=== PATIENT | male | born 1980 | race Caucasian/White ===

== ENCOUNTER 2023-01-07 11:41 | Emergency (ER) | payer OTHER ==
[2023-01-07] MEDS ORDERED: SODIUM CHLORIDE 0.9% 1,000 ML IV ONE ×2 (11:53→13:31)
[2023-01-07] MEDS ORDERED: lisinopriL 10 MG TAB PO STA (12:05)
[2023-01-07 12:06] VITALS: TEMP 98.7
[2023-01-07 12:27] LABS: Basophils % (A) 1 %; Eosinophils # (A) 0.1 k/uL (0-0.7); Eosinophils % (A) 2 %; HCT 46.7 % (39.0-53.0); HGB 15.8 gm/dL (13.0-17.5); Lymphocytes # (A) 1.5 k/uL (1.0-4.8); Lymphocytes % (A) 30 %; MCH 33.1 pg (25.0-35.0); MCHC 33.9 g/dL (31.0-37.0); MCV 97.8 fL (80.0-100.0); Monocytes # (A) 0.3 k/uL (0-1.0); Monocytes % (A) 6 %; Neutrophils # (A) 3.1 k/uL (1.3-7.7); Neutrophils % (A) 60 %; Platelet Count 182 k/uL (150-450); RBC 4.78 m/uL (4.30-5.90); RDW 12.5 % (11.5-15.5); WBC 5.2 k/uL (3.8-10.6)
[2023-01-07 12:37] LABS: ALT 36 U/L (4-49); AST 54 U/L (17-59); African American GFR (CKD) >90 (>60 ml/min/1.73 sqM); Albumin 5.1 g/dL (3.5-5.0); Alkaline Phosphatase 55 U/L (38-126); Anion Gap 14 mmol/L; Blood Urea Nitrogen 13 mg/dL (9-20); Calcium 9.6 mg/dL (8.4-10.2); Carbon Dioxide 24 mmol/L (22-30); Chloride 100 mmol/L (98-107); Glucose 102 mg/dL (74-99); Non-African American GFR(CKD) >90 (>60 ml/min/1.73 sqM); Potassium 4.4 mmol/L (3.5-5.1); Sodium 138 mmol/L (137-145); Total Bilirubin 0.7 mg/dL (0.2-1.3)
[2023-01-07 12:45] LABS: Partial Thromboplastin Time 24.4 sec (22.0-30.0)
--- NOTE | 2023-01-07 13:00 | ED ---
General Adult HPI - General Chief complaint: Recheck/Abnormal Lab/Rx Stated complaint: SOB Time Seen by Provider: 01/07/23 11:47 Source: patient, RN notes reviewed Mode of arrival: ambulatory Limitations: no limitations - History of Present Illness Initial comments: 42-year-old female with a past medical history significant for TBI and uncontrolled hypertension presents emergency department with a chief complaint of dizziness. Patient reports that he has been out of his hypertensive medications for approximately 10 months. He used to take lisinopril however was only given 2 weeks worth. He reports increased of symptoms of dizziness, li ghtheadedness and feeling like he can't find his words appropriately. He denies injury or trauma. He denies any chills, cough, chest pain, palpitations,, nausea, vomiting, abdominal pain. He does report at times he feels like it is hard to catch his breath however this has been ongoing and intermittent for 3 weeks. Denies recent alcohol use, is a current tobacco smoker. - Related Data Previous Rx's Medication Instructions Recorded amLODIPine [Norvasc] 5 mg PO DAILY #30 tab 01/07/23 lisinopriL 40 mg PO DAILY #30 tab 01/07/23 Allergies Allergy/AdvReac Type Severity Reaction Status Date / Time No Known Allergies Allergy Verified 01/07/23 14:15 Review of Systems ROS Statement: Those systems with pertinent positive or pertinent negative responses have been documented in the HPI. ROS Other: All systems not noted in ROS Statement are negative. Past Medical History Past Medical History: Hypertension Additional Past Medical History / Comment(s): Chronic back pain, head injury 2004 History of Any Multi-Drug Resistant Organisms: None Reported Additional Past Surgical History / Comment(s): Carpal tunnel, jaw surgery Past Anesthesia/Blood Transfusion Reactions: No Reported Reaction Past Psychological History: Anxiety Smoking Status: Current every day smoker Past Alcohol Use History: Occasional Past Drug Use History: Marijuana - Past Family History Father Family Medical History: Coronary Artery Disease (CAD), Hyperlipidemia General Exam - General Exam Comments Initial Comments: General: Alert, in no acute distress Head: atraumatic normocephalic. Eyes PERRL, EOMI intact, mucous membranes moist Respiratory: Lungs clear to auscultation bilaterally Cardiovascular: Heart rate regular rate and rhythm Abdominal: Soft without guarding or rebound Extremities: Normal inspection with full range of motion and normal capillary refill Neuroogic: alert and oriented 3, CN II-XII intact, able to ambulate with steady gait Skin: warm dry and intact with normal color Limitations: no limitations Course Vital Signs 01/07/23 01/07/23 01/07/23 11:43 12:24 13:00 Temperature 98.7 F Pulse Rate 79 82 69 Respiratory 18 18 18 Rate Blood Pressure 189/115 164/102 182/115 O2 Sat by Pulse 97 98 98 Oximetry 01/07/23 01/07/23 14:00 15:13 Temperature Pulse Rate 78 Respiratory 16 Rate Blood Pressure 154/94 154/94 O2 Sat by Pulse 98 Oximetry - Reevaluation(s) Reevaluation #1: 01/07/23 14:07 Patient reevaluated. Patient in no acute distress. Denies any active symptoms. Aware awaiting lower blood pressure in order to discharge Reevaluation #2: 01/07/23 14:59 Patient reevaluated. Blood pressure is 150s over 90s. Patient agreeable with the plan for discharge home. EKG Findings - EKG Comments: EKG Findings:: I interpreted the following: EKG performed 12:28 rate is 63 bpm normal sinus rhythm. VT interval 165, QRS duration 83, QT/QTc 404/411 Medical Decision Making - Medical Decision Making Was pt. sent in by a medical professional or institution ([facility] [place], SPEEDOMETER INSPECTOR, urgent care, hospital, or fpc...) When possible be specific @ -[No] Did you speak to anyone other than the patient for history (EMS, parent, family, police, friend...)? What history was obtained from this source @ -[No] Did you review nursing and triage notes (agree or disagree)? Why? @ -[I reviewed and agree with nursing and triage notes] Were old charts reviewed (outside hosp., previous admission, EMS record, old EKG, old radiological studies, urgent care reports/EKG's, fpc records)? Report findings @ -[No old charts were reviewed] Differential Diagnosis (chest pain, altered mental status, abdominal pain women, abdominal pain men, vaginal bleeding, weakness, fever, dyspnea, syncope, he adache, dizziness, GI bleed, back pain, seizure, CVA, palpatations, mental health, musculoskeletal)? @ -[not applicable] EKG interpreted by me (3pts min.). @ -[As above] X-rays interpreted by me (1pt min.). @ Chest x-ray remarkable CT interpreted by me (1pt min.). @ -[None done] U/S interpreted by me (1pt. min.). @ -[None done] What testing was considered but not performed or refused? (CT, X-rays, U/S, lab s)? Why? @ -[None] What meds were considered but not given or refused? Why? @ -[None] Did you discuss the management of the patient with other professionals (professionals i.e. , PA, SPEEDOMETER INSPECTOR, lab, RT, psych nurse, health care social worker, adjunct faculty instructor, teacher, mounted police officer, immigration case worker)? Give summary @ -[No] Was smoking cessation discussed for >3mins.? @ -[No] Was critical care preformed (if so, how long)? @ -[No] Were there social determinants of health that impacted care today? How? (Homelessness, low income, unemployed, alcoholism, drug addiction, transportation, low edu. Level, literacy, decrease access to med. care, [facility], rehab)? @ -[No] Was there de-escalation of care discussed even if they declined (Discuss DNR or withdrawal of care, Hospice)? DNR status @ -[No] What co-morbidities impacted this encounter? (DM, HTN, Smoking, COPD, CAD, Cancer, CVA, ARF, Chemo, Hep., AIDS, mental health diagnosis, sleep apnea, morbid obesity)? @ -[None] Was patient admitted / discharged? Hospital course, mention meds given and route, prescriptions, significant lab abnormalities, going to OR and other per tinent info. @ Discharged. This is a 42-year-old male with no significant past medical history who presents to the emergency room with a chief complaint of high blood pressure. Patient had a thorough history and physical exam performed. Physical exam essentially unremarkable heart rat regular rate and rhythm, lungs clear to auscultation abdomen soft nontender. No focal neuro deficits noted on exam. Patient's blood pressure upon arrival 190s over 110's The progression of the ER patient was given lisinopril and Norvasc. Symptomatic improvement. Blood pressure upon discharge is 150s over 80s. Patient provided lisinopril and Norvasc prescriptions. Recommended close follow-up with PCP in 2-3 days. Educated patient on importance of blood pressure management and increased risk for stroke. Patient verbalized understanding all questions were addressed. Patient discharged in stable condition. Case discussed with Dr. Ventura who agrees with plan of care Undiagnosed new problem with uncertain prognosis? @ -[No] Drug Therapy requiring intensive monitoring for toxicity (Heparin, Nitro, Insulin, Cardizem)? @ -[No] Were any procedures done? @ -[No] Diagnosis/symptom? @ -HTN Acute, or Chronic, or Acute on Chronic? @ -Acute Uncomplicated (without systemic symptoms) or Complicated (systemic symptoms)? @ -Uncomplicated Side effects of treatment? @ -[No] Exacerbation, Progression, or Severe Exacerbation? @ -[No] Poses a threat to life or bodily function? How? (Chest pain, [place], [place], pneumonia, PE, COPD, DKA, ARF, appy, cholecystitis, CVA, Diverticulitis, Homicidal, Suicidal, threat to staff... and all critical care pts) @ -Low likelihood - Lab Data Result diagrams: 01/07/23 12:12 01/07/23 12:12 Lab Results 01/07/23 01/07/23 01/07/23 Range/Units 12:12 12:12 12:12 WBC 5.2 (3.8-10.6) k/uL RBC 4.78 (4.30-5.90) m/uL Hgb 15.8 (13.0-17.5) gm/dL Hct 46.7 (39.0-53.0) % MCV 97.8 (80.0-100.0) fL MCH 33.1 (25.0-35.0) pg MCHC 33.9 (31.0-37.0) g/dL RDW 12.5 (11.5-15.5) % Plt Count 182 (150-450) k/uL MPV 7.0 Neutrophils % 60 % Lymphocytes % 30 % Monocytes % 6 % Eosinophils % 2 % Basophils % 1 % Neutrophils # 3.1 (1.3-7.7) k/uL Lymphocytes # 1.5 (1.0-4.8) k/uL Monocytes # 0.3 (0-1.0) k/uL Eosinophils # 0.1 (0-0.7) k/uL Basophils # 0.0 (0-0.2) k/uL PT 11.0 (10.0-12.5) sec INR 1.0 (<1.2) APTT 24.4 (22.0-30.0) sec Sodium (137-145) mmol/L Potassium (3.5-5.1) mmol/L Chloride (98-107) mmol/L Carbon Dioxide (22-30) mmol/L Anion Gap mmol/L BUN (9-20) mg/dL Creatinine (0.66-1.25) mg/dL Est GFR (CKD-EPI)AfAm (>60 ml/min/1.73 sqM) Est GFR (CKD-EPI)NonAf (>60 ml/min/1.73 sqM) Glucose (74-99) mg/dL Calcium (8.4-10.2) mg/dL Total Bilirubin (0.2-1.3) mg/dL AST (17-59) U/L ALT (4-49) U/L Alkaline Phosphatase (38-126) U/L Troponin I (0.000-0.034) ng/mL Total Protein (6.3-8.2) g/dL Albumin (3.5-5.0) g/dL Urine Color Colorless Urine Appearance Clear (Clear) Urine pH 6.5 (5.0-8.0) Ur Specific [place] 1.004 (1.001-1.035) Urine Protein Negative (Negative) Urine Glucose (UA) Negative (Negative) Urine Ketones Negative (Negative) Urine Blood Negative (Negative) Urine Nitrite Negative (Negative) Urine Bilirubin Negative (Negative) Urine Urobilinogen <2.0 (<2.0) mg/dL Ur Leukocyte Esterase Negative (Negative) 01/07/23 01/07/23 Range/Units 12:12 12:12 WBC (3.8-10.6) k/uL RBC (4.30-5.90) m/uL Hgb (13.0-17.5) gm/dL Hct (39.0-53.0) % MCV (80.0-100.0) fL MCH (25.0-35.0) pg MCHC (31.0-37.0) g/dL RDW (11.5-15.5) % Plt Count (150-450) k/uL MPV Neutrophils % % Lymphocytes % % Monocytes % % Eosinophils % % Basophils % % Neutrophils # (1.3-7.7) k/uL Lymphocytes # (1.0-4.8) k/uL Monocytes # (0-1.0) k/uL Eosinophils # (0-0.7) k/uL Basophils # (0-0.2) k/uL PT (10.0-12.5) sec INR (<1.2) APTT (22.0-30.0) sec Sodium 138 (137-145) mmol/L Potassium 4.4 (3.5-5.1) mmol/L Chloride 100 (98-107) mmol/L Carbon Dioxide 24 (22-30) mmol/L Anion Gap 14 mmol/L BUN 13 (9-20) mg/dL Creatinine 0.66 (0.66-1.25) mg/dL Est GFR (CKD-EPI)AfAm >90 (>60 ml/min/1.73 sqM) Est GFR (CKD-EPI)NonAf >90 (>60 ml/min/1.73 sqM) Glucose 102 H (74-99) mg/dL Calcium 9.6 (8.4-10.2) mg/dL Total Bilirubin 0.7 (0.2-1.3) mg/dL AST 54 (17-59) U/L ALT 36 (4-49) U/L Alkaline Phosphatase 55 (38-126) U/L Troponin I <0.012 (0.000-0.034) ng/mL Total Protein 8.0 (6.3-8.2) g/dL Albumin 5.1 H (3.5-5.0) g/dL Urine Color Urine Appearance (Clear) Urine pH (5.0-8.0) Ur Specific [place] (1.001-1.035) Urine Protein (Negative) Urine Glucose (UA) (Negative) Urine Ketones (Negative) Urine Blood (Negative) Urine Nitrite (Negative) Urine Bilirubin (Negative) Urine Urobilinogen (<2.0) mg/dL Ur Leukocyte Esterase (Negative) Disposition Clinical Impression: Encounter for medication refill, Hypertension Disposition: HOME SELF-CARE Condition: Stable Additional Instructions: Please take medications as prescribed Please take blood pressure and morning and afternoon Please establish care with primary care provider whether in [place] or [place] Please return to the nearest emergency department if symptoms worsen or persist Prescriptions: lisinopriL 40 mg PO DAILY #30 tab amLODIPine [Norvasc] 5 mg PO DAILY #30 tab Is patient prescribed a controlled substance at d/c from ED?: No Referrals: None,Stated [Primary Care Provider] - 1-2 days Forms: Area PCPs Time of Disposition: 15:00
--- NOTE | 2023-01-07 13:02 | CT ---
EXAMINATION TYPE: CT brain wo con DATE OF EXAM: 01/07/2023 COMPARISON: 07/05/2011 HISTORY: 42-year-old male hypertension with HEADACHE TECHNIQUE: Examination was done in axial plane without intravenous contrast. Coronal and sagittal r econstructions performed. CT DLP: 1095.1 mGycm Automated exposure control for dose reduction was used. FINDINGS: There is no evidence of acute intracranial hemorrhage, acute ischemic changes, mass, mass-effect, or extra-axial fluid collection. There is no effacement of cerebral sulci or basal subarachnoid cister ns. There is no hydrocephalus. There is no midline shift. Ray-white matter distinction is preserv ed. Leftward nasal septal deviation. Paranasal sinuses and mastoid air cells well pneumatized. Orbits and globes are intact. IMPRESSION: No acute intracranial abnormality seen.
--- NOTE | 2023-01-07 13:08 | XR ---
EXAMINATION TYPE: XR chest 2V DATE OF EXAM: 01/07/2023 COMPARISON: 12/17/2013 HISTORY: 42-year-old male hypertension, lightheaded, dizzy TECHNIQUE: PA and lateral views FINDINGS: The cardiomediastinal silhouette, aorta, and pulmonary vasculature are within normal limits. Lungs an d pleural spaces are clear. IMPRESSION: No acute cardiopulmonary process.
[2023-01-07 13:41] LABS: Appearance,Urine Clear (Clear); Bilirubin,Urine Negative (Negative); Color,Urine Colorless; Glucose,Urine (UA) Negative (Negative); Ketones,Urine Negative (Negative); PH, Urine 6.5 (5.0-8.0); Protein,Urine Negative (Negative); Specific Gravity,Urine 1.004 (1.001-1.035)
[2023-01-07 13:42] LABS: Blood,Urine Negative (Negative); Leukocyte Esterase,Urine Negative (Negative); Nitrite,Urine Negative (Negative); Urobilinogen,Urine <2.0 mg/dL (<2.0)
[2023-01-07] MEDS ORDERED: amLODIPine 5 MG TAB PO STA (13:51)
[2023-01-07 14:51] VITALS: BP 154/94
[2023-01-07 15:16] VITALS: PULSE 78; RESP 16
== END 2023-01-07 15:15 | disposition home or self-care (01) ==
LOC: EC 11:41
DX: I10 Essential (primary) hypertension (principal); F17.200 Nicotine dependence, unspecified, uncomplicated; F12.90 Cannabis use, unspecified, uncomplicated; Z76.0 Encounter for issue of repeat prescription; Z79.899 Other long term (current) drug therapy
CPT/HCPCS: 36415; 70450; 71046; 80053; 81003; 84484; 85025; 85610; 85730; 93005; 96360; 96361; 99285

== ENCOUNTER 2023-07-01 12:15 | Observation (INO) | payer OTHER ==
--- NOTE | 2023-07-01 13:16 | ED ---
General Adult HPI - General Chief complaint: Syncope Stated complaint: Syncope,GI Bleed Time Seen by Provider: 07/01/23 12:17 Source: patient, EMS, RN notes reviewed Mode of arrival: EMS Limitations: no limitations - History of Present Illness Initial comments: Is a 42-year-old male presenting to the emergency department with hematochezia. Patient did have a bowel movement this morning mixed with blood. Patient adds he did have a second bloody bowel movement in the emergency department which was mostly blood. Patient is having some mild abdominal discomfort. This was worse previously. Patient did have nausea vomiting and diarrhea over the past week. Patient did have some associated sharp chest discomfort that is mild at this time. - Related Data Previous Rx's Medication Instructions Recorded lisinopriL 40 mg PO DAILY #30 tab 01/07/23 Allergies Allergy/AdvReac Type Severity Reaction Status Date / Time sulfamethoxazole AdvReac Unknown Verified 07/01/23 12:53 [From Bactrim] trimethoprim [From Bactrim] AdvReac Unknown Verified 07/01/23 12:53 Review of Systems ROS Statement: Those systems with pertinent positive or pertinent negative responses have been documented in the HPI. ROS Other: All systems not noted in ROS Statement are negative. Constitutional: Denies: fever Eyes: Denies: eye pain ENT: Denies: ear pain Respiratory: Denies: cough Cardiovascular: Reports: as per HPI, chest pain Endocrine: Denies: fatigue Gastrointestinal: Reports: as per HPI, abdominal pain, hematochezia Musculoskeletal: Denies: back pain Skin: Denies: rash Neurological: Denies: weakness Past Medical History Past Medical History: Hypertension Additional Past Medical History / Comment(s): Chronic back pain, head injury 2003 History of Any Multi-Drug Resistant Organisms: None Reported Additional Past Surgical History / Comment(s): Carpal tunnel, jaw surgery Past Anesthesia/Blood Transfusion Reactions: No Reported Reaction Past Psychological History: Anxiety Smoking Status: Current every day smoker Past Alcohol Use History: Occasional Past Drug Use History: Marijuana - Past Family History Father Family Medical History: Coronary Artery Disease (CAD), Hyperlipidemia General Exam Limitations: no limitations General appearance: alert, in no apparent distress Head exam: Present: atraumatic, normocephalic Eye exam: Present: normal appearance Neck exam: Present: normal inspection Respiratory exam: Present: normal lung sounds bilaterally Cardiovascular Exam: Present: regular rate, normal rhythm, normal heart sounds Expanded Peripheral pulses: 2+: Radial (R), Radial (L), Posterior Tibialis (R), Posterior Tibialis (L) GI/Abdominal exam: Present: soft, normal bowel sounds. Absent: distended, tenderness, guarding, rebound, rigid, pulsatile mass Rectal exam: Present: normal inspection. Absent: bloody stool, hemorrhoids Extremities exam: Present: normal inspection Neurological exam: Present: alert. Absent: motor sensory deficit Psychiatric exam: Present: normal affect, normal mood Skin exam: Present: normal color Course Vital Signs 07/01/23 07/01/23 12:17 15:15 Temperature 97.5 F L Pulse Rate 85 71 Respiratory 17 18 Rate Blood Pressure 134/96 127/88 O2 Sat by Pulse 99 99 Oximetry EKG Findings - EKG Results: EKG: interpreted by MADONNA (Polarization changes in V2), sinus rhythm, normal axis, normal QRS Medical Decision Making - Medical Decision Making Was pt. sent in by a medical professional or institution (, [place], CREW MEMBER, urgent care, hospital, or jail...) When possible be specific @ -No Did you speak to anyone other than the patient for history (EMS, parent, family, police, friend...)? What history was obtained from this source @ -No Did you review nursing and triage notes (agree or disagree)? Why? @ -I reviewed and agree with nursing and triage notes Were old charts reviewed (outside hosp., previous admission, EMS record, old EKG, old radiological studies, urgent care reports/EKG's, jail records)? Report findings @ -No old charts were reviewed Differential Diagnosis (chest pain, altered mental status, abdominal pain women, abdominal pain men, vaginal bleeding, weakness, fever, dyspnea, syncope, headache, dizziness, GI bleed, back pain, seizure, CVA, palpatations, mental health, musculoskeletal)? @ -Differential Syncope: Valvular disease, hypertrophic cardiomyopathy, pulmonary embolism, tamponade, tachycardia, bradycardia, [place], hypovolemia, hemorrhage, dissection, anemia, intracranial hemorrhage, seizure, hypoglycemia, carbon monoxide poisoning, this is not meant to be an all-inclusive list. EKG interpreted by me (3pts min.). @ -As above X-rays interpreted by me (1pt min.). @ -Chest x-ray shows no acute process CT interpreted by me (1pt min.). @ -CT scan of chest, and CT scan of abdomen pelvis without acute abnormality U/S interpreted by me (1pt. min.). @ -None done What testing was considered but not performed or refused? (CT, X-rays, U/S, labs)? Why? @ -None What meds were considered but not given or refused? Why? @ -None Did you discuss the management of the patient with other professionals (professionals i.e. , PA, CREW MEMBER, lab, RT, psych nurse, social and human services assistant, composition worker, teacher, disability insurance hearing officer, family service caseworker)? Give summary @ -Case was discussed with Dr. Marie who will consult. Case also discussed with practitioner peggy who will admit covering hospital call. Was smoking cessation discussed for >3mins.? @ -No Was critical care preformed (if so, how long)? @ -No Were there social determinants of health that impacted care today? How? (Homelessness, low income, unemployed, alcoholism, drug addiction, transportation, low edu. Level, literacy, decrease access to med. care, group home, rehab)? @ -No Was there de-escalation of care discussed even if they declined (Discuss DNR or withdrawal of care, Hospice)? DNR status @ -No What co-morbidities impacted this encounter? (DM, HTN, Smoking, COPD, CAD, Cancer, CVA, ARF, Chemo, Hep., AIDS, mental health diagnosis, sleep apnea, morbid obesity)? @ -None Was patient admitted / discharged? Hospital course, mention meds given and route, prescriptions, significant lab abnormalities, going to OR and other pertinent info. @ -Patient reevaluated and resting comfortably in bed. Patient is updated on results and plan. Patient will be admitted. Admission orders written. Undiagnosed new problem with uncertain prognosis? @ -No Drug Therapy requiring intensive monitoring for toxicity (Heparin, Nitro, Insulin, Cardizem)? @ -No Were any procedures done? @ -No Diagnosis/symptom? @ -Syncope, diarrhea Acute, or Chronic, or Acute on Chronic? @ -Acute, acute Uncomplicated (without systemic symptoms) or Complicated (systemic symptoms)? @ -Default Side effects of treatment? @ -No Exacerbation, Progression, or Severe Exacerbation? @ -No Poses a threat to life or bodily function? How? (Chest pain, [place], [place], pneumonia, PE, COPD, DKA, ARF, appy, cholecystitis, CVA, Diverticulitis, Homicidal, Suicidal, threat to staff... and all critical care pts) @ -No - Lab Data Result diagrams: 07/01/23 13:10 07/01/23 13:37 Lab Results 07/01/23 07/01/23 07/01/23 Range/Units 13:10 13:10 13:37 WBC 7.4 (3.8-10.6) k/uL RBC 4.18 L (4.30-5.90) m/uL Hgb 13.7 (13.0-17.5) gm/dL Hct 41.1 (39.0-53.0) % MCV 98.4 (80.0-100.0) fL MCH 32.9 (25.0-35.0) pg MCHC 33.4 (31.0-37.0) g/dL RDW 12.7 (11.5-15.5) % Plt Count 229 (150-450) k/uL MPV 7.3 Neutrophils % 78 % Lymphocytes % 13 % Monocytes % 6 % Eosinophils % 1 % Basophils % 1 % Neutrophils # 5.8 (1.3-7.7) k/uL Lymphocytes # 1.0 (1.0-4.8) k/uL Monocytes # 0.4 (0-1.0) k/uL Eosinophils # 0.1 (0-0.7) k/uL Basophils # 0.0 (0-0.2) k/uL PT 10.4 (10.0-12.5) sec INR 0.9 (<1.2) APTT 21.2 L (22.0-30.0) sec D-Dimer 0.83 H (<0.60) mg/L FEU Sodium (137-145) mmol/L Potassium (3.5-5.1) mmol/L Chloride (98-107) mmol/L Carbon Dioxide (22-30) mmol/L Anion Gap mmol/L BUN (9-20) mg/dL Creatinine (0.66-1.25) mg/dL Est GFR (CKD-EPI)AfAm (>60 ml/min/1.73 sqM) Est GFR (CKD-EPI)NonAf (>60 ml/min/1.73 sqM) Glucose (74-99) mg/dL Calcium (8.4-10.2) mg/dL Magnesium (1.6-2.3) mg/dL Total Bilirubin (0.2-1.3) mg/dL AST (17-59) U/L ALT (4-49) U/L Alkaline Phosphatase (38-126) U/L Troponin I <0.012 (0.000-0.034) ng/mL Total Protein (6.3-8.2) g/dL Albumin (3.5-5.0) g/dL Stool Occult Blood (Negative) 07/01/23 07/01/23 Range/Units 13:37 14:00 WBC (3.8-10.6) k/uL RBC (4.30-5.90) m/uL Hgb (13.0-17.5) gm/dL Hct (39.0-53.0) % MCV (80.0-100.0) fL MCH (25.0-35.0) pg MCHC (31.0-37.0) g/dL RDW (11.5-15.5) % Plt Count (150-450) k/uL MPV Neutrophils % % Lymphocytes % % Monocytes % % Eosinophils % % Basophils % % Neutrophils # (1.3-7.7) k/uL Lymphocytes # (1.0-4.8) k/uL Monocytes # (0-1.0) k/uL Eosinophils # (0-0.7) k/uL Basophils # (0-0.2) k/uL PT (10.0-12.5) sec INR (<1.2) APTT (22.0-30.0) sec D-Dimer (<0.60) mg/L FEU Sodium 134 L (137-145) mmol/L Potassium 4.2 (3.5-5.1) mmol/L Chloride 106 (98-107) mmol/L Carbon Dioxide 22 (22-30) mmol/L Anion Gap 6 mmol/L BUN 11 (9-20) mg/dL Creatinine 0.49 L (0.66-1.25) mg/dL Est GFR (CKD-EPI)AfAm >90 (>60 ml/min/1.73 sqM) Est GFR (CKD-EPI)NonAf >90 (>60 ml/min/1.73 sqM) Glucose 94 (74-99) mg/dL Calcium 8.2 L (8.4-10.2) mg/dL Magnesium 1.7 (1.6-2.3) mg/dL Total Bilirubin 0.4 (0.2-1.3) mg/dL AST 57 (17-59) U/L ALT 38 (4-49) U/L Alkaline Phosphatase 64 (38-126) U/L Troponin I (0.000-0.034) ng/mL Total Protein 5.8 L (6.3-8.2) g/dL Albumin 3.5 (3.5-5.0) g/dL Stool Occult Blood Positive (Negative) Disposition Clinical Impression: Syncope Disposition: ADMITTED IP TO THIS HOSP Is patient prescribed a controlled substance at d/c from ED?: No Referrals: None,Stated [Primary Care Provider] - 1-2 days Time of Disposition: 17:05
[2023-07-01] MEDS: SODIUM CHLORIDE 0.9% 1,000 ML IV STA (13:17)
[2023-07-01] MEDS: PANTOPRAZOLE 40 MG/10 ML VIAL IVP STA (13:18)
[2023-07-01 13:44] LABS: Basophils % (A) 1 %; Eosinophils # (A) 0.1 k/uL (0-0.7); Eosinophils % (A) 1 %; HCT 41.1 % (39.0-53.0); HGB 13.7 gm/dL (13.0-17.5); Lymphocytes % (A) 13 %; MCH 32.9 pg (25.0-35.0); MCHC 33.4 g/dL (31.0-37.0); MCV 98.4 fL (80.0-100.0); Mean Platelet Volume 7.3; Monocytes # (A) 0.4 k/uL (0-1.0); Monocytes % (A) 6 %; Neutrophils # (A) 5.8 k/uL (1.3-7.7); Neutrophils % (A) 78 %; Platelet Count 229 k/uL (150-450); RBC 4.18 m/uL (4.30-5.90); RDW 12.7 % (11.5-15.5); WBC 7.4 k/uL (3.8-10.6)
[2023-07-01 13:58] LABS: ALT 38 U/L (4-49); AST 57 U/L (17-59); African American GFR (CKD) >90 (>60 ml/min/1.73 sqM); Albumin 3.5 g/dL (3.5-5.0); Alkaline Phosphatase 64 U/L (38-126); Anion Gap 6 mmol/L; Blood Urea Nitrogen 11 mg/dL (9-20); Calcium 8.2 mg/dL (8.4-10.2); Carbon Dioxide 22 mmol/L (22-30); Chloride 106 mmol/L (98-107); Glucose 94 mg/dL (74-99); Magnesium 1.7 mg/dL (1.6-2.3); Non-African American GFR(CKD) >90 (>60 ml/min/1.73 sqM); Potassium 4.2 mmol/L (3.5-5.1); Sodium 134 mmol/L (137-145); Total Bilirubin 0.4 mg/dL (0.2-1.3); Total Protein 5.8 g/dL (6.3-8.2)
[2023-07-01 14:10] LABS: INR 0.9 (<1.2); Partial Thromboplastin Time 21.2 sec (22.0-30.0); Prothrombin Time 10.4 sec (10.0-12.5)
--- NOTE | 2023-07-01 15:07 | CT ---
EXAMINATION TYPE: CT abdomen pelvis w con DATE OF EXAM: 07/01/2023 COMPARISON: 07/05/2011 INDICATION: syncope, dark stools and elevated d-dimer DLP: 848.8 mGycm, Automated exposure control for dose reduction was used. CONTRAST: 100 mL of Isovue 370. Study performed without Oral Contrast TECHNIQUE: Axial images were obtained from above the diaphragm to the pubic rami in the axial plane a t 5 mm thick sections. Reconstructed images are reviewed on the computer in the coronal plane. FINDINGS: Limited CT sections are obtained the lung bases. The lung bases are clear. CT ABDOMEN: Liver: Normal Spleen: Normal Pancreas: Normal Adrenal glands: The adrenal glands are normal. Gallbladder: Normal Kidneys: No masses are evident. No hydronephrosis is present. No cysts are present. Delayed images were obtained through the kidneys, which remain unremarkable. Aorta: Normal Inferior vena cava: Normal. CT PELVIS: Loops of bowel within the abdomen and pelvis are normal. This study is performed without oral con trast limits bowel evaluation. Appendix: Normal as visualized. Urinary bladder: Decompressed. Some thickening of the bladder wall may be present. Genitourinary structures: Prostate appears unremarkable Osseous structures: No suspicious lytic or sclerotic lesions. IMPRESSION: 1. No suspicious acute changes.
--- NOTE | 2023-07-01 15:08 | XR ---
EXAMINATION TYPE: XR chest 2V DATE OF EXAM: 07/01/2023 3:03 PM CLINICAL INDICATION:Male, 42 years old with history of syncope; H COMPARISON: Chest radiographs from 01/07/2023 TECHNIQUE: XR chest 2V Frontal and lateral views of the chest. FINDINGS: Lungs/Pleura: There is flattening of the diaphragm with increased lucency of the lungs. No evidence o f pneumothorax, pleural effusion or focal consolidation. Pulmonary vascularity: Unremarkable. Heart/mediastinum: Cardiomediastinal silhouette is unremarkable. Musculoskeletal: No acute osseous pathology. IMPRESSION: 1. No acute cardiopulmonary disease process. 2. COPD changes.
--- NOTE | 2023-07-01 15:10 | CT ---
CTA CHEST EXAMINATION TYPE: CT angio chest DATE OF EXAM: 07/01/2023 INDICATION: syncope, dark stools and elevated d-dimer CT DLP: 848.8 mGycm, Automated exposure control for dose reduction was used. CONTRAST: Patient injected with 100ml mL of Isovue 370. COMPARISON: 07/05/2011 TECHNIQUE: CT of the chest is performed on a spiral scan at 2 mm thick sections. Study is performed with intravenous contrast timed for evaluation for pulmonary embolism. This will limit additional po rtions of the evaluation. 3-D MIP images reconstructed by the technologist are reviewed on the compu ter in the coronal and sagittal planes. FINDINGS: No persistent filling defects are evident to suggest an acute pulmonary embolism. No mediastinal or hilar adenopathy enlarged by CT criteria is evident. The ascending aorta diameter at the level of the main pulmonary artery is 3.0 cm. The main pulmonary artery diameter at the bifurcation is 2.6 cm. Lung windows are clear. Limited CT sections were through the upper abdomen. Upper abdomen appears unremarkable. IMPRESSION: 1. No acute pulmonary embolism. 2. No acute pulmonary process.
[2023-07-01] MEDS ORDERED: NALOXONE 0.4 MG/ML 1 ML VIAL IV PRN (17:05)
[2023-07-01] MEDS ORDERED: ONDANSETRON 4 MG/2 ML VIAL IVP PRN (17:05)
[2023-07-01] MEDS: SODIUM CHLORIDE 0.9% 1,000 ML IV SCH (17:10)
--- NOTE | 2023-07-02 06:33 | P.GSHP ---
History of Present Illness H&P Date: 07/01/23 The patient is a 42-year-old male admitted with acute GI bleed. He reports blood in stools. He has a family history of colon cancer in his grandmother's dying of it. He reports severe epigastric pain. Possibility risk of ulcers. Recommend both upper and lower endoscopy. Bowel prep start tomorrow. Past Medical History Past Medical History: Hypertension Additional Past Medical History / Comment(s): Chronic back pain, head injury 2003 History of Any Multi-Drug Resistant Organisms: None Reported Additional Past Surgical History / Comment(s): brain surgery jaw surgery Past Anesthesia/Blood Transfusion Reactions: No Reported Reaction Past Psychological History: Anxiety Smoking Status: Current every day smoker Past Alcohol Use History: Occasional Past Drug Use History: Marijuana Additional Drug Use History / Comment(s): Patient uses medical marijuana - Past Family History Father Family Medical History: Coronary Artery Disease (CAD), Hyperlipidemia Medications and Allergies Home Medications Medication Instructions Recorded Confirmed Type lisinopriL 40 mg PO DAILY #30 tab 01/07/23 07/01/23 Rx Allergies Allergy/AdvReac Type Severity Reaction Status Date / Time sulfamethoxazole AdvReac Unknown Verified 07/01/23 12:53 [From Bactrim] trimethoprim [From Bactrim] AdvReac Unknown Verified 07/01/23 12:53 Surgical - Exam Vital Signs Temp Pulse Resp BP Pulse Ox 97.5 F L 85 17 134/96 99 07/01/23 12:17 07/01/23 12:17 07/01/23 12:17 07/01/23 12:17 07/01/23 12:17 Results - Labs 07/01/23 13:10 07/01/23 13:37 Abnormal Lab Results - Last 24 Hours (Table) 07/01/23 07/01/23 07/01/23 Range/Units 13:10 13:37 13:37 RBC 4.18 L (4.30-5.90) m/uL APTT 21.2 L (22.0-30.0) sec D-Dimer 0.83 H (<0.60) mg/L FEU Sodium 134 L (137-145) mmol/L Creatinine 0.49 L (0.66-1.25) mg/dL Calcium 8.2 L (8.4-10.2) mg/dL Total Protein 5.8 L (6.3-8.2) g/dL Diabetes panel 07/01/23 Range/Units 13:37 Sodium 134 L (137-145) mmol/L Potassium 4.2 (3.5-5.1) mmol/L Chloride 106 (98-107) mmol/L Carbon Dioxide 22 (22-30) mmol/L BUN 11 (9-20) mg/dL Creatinine 0.49 L (0.66-1.25) mg/dL Glucose 94 (74-99) mg/dL Calcium 8.2 L (8.4-10.2) mg/dL AST 57 (17-59) U/L ALT 38 (4-49) U/L Alkaline Phosphatase 64 (38-126) U/L Total Protein 5.8 L (6.3-8.2) g/dL Albumin 3.5 (3.5-5.0) g/dL Calcium panel 07/01/23 Range/Units 13:37 Calcium 8.2 L (8.4-10.2) mg/dL Albumin 3.5 (3.5-5.0) g/dL Pituitary panel 07/01/23 Range/Units 13:37 Sodium 134 L (137-145) mmol/L Potassium 4.2 (3.5-5.1) mmol/L Chloride 106 (98-107) mmol/L Carbon Dioxide 22 (22-30) mmol/L BUN 11 (9-20) mg/dL Creatinine 0.49 L (0.66-1.25) mg/dL Glucose 94 (74-99) mg/dL Calcium 8.2 L (8.4-10.2) mg/dL Adrenal panel 07/01/23 Range/Units 13:37 Sodium 134 L (137-145) mmol/L Potassium 4.2 (3.5-5.1) mmol/L Chloride 106 (98-107) mmol/L Carbon Dioxide 22 (22-30) mmol/L BUN 11 (9-20) mg/dL Creatinine 0.49 L (0.66-1.25) mg/dL Glucose 94 (74-99) mg/dL Calcium 8.2 L (8.4-10.2) mg/dL Total Bilirubin 0.4 (0.2-1.3) mg/dL AST 57 (17-59) U/L ALT 38 (4-49) U/L Alkaline Phosphatase 64 (38-126) U/L Total Protein 5.8 L (6.3-8.2) g/dL Albumin 3.5 (3.5-5.0) g/dL
[2023-07-02] MEDS: PANTOPRAZOLE 40 MG/10 ML VIAL IV SCH ×2 (08:16→19:41)
[2023-07-02] MEDS: lisinopriL 20 MG TAB PO SCH (08:16)
[2023-07-02] MEDS ORDERED: HYDROcodone/APAP 5-325MG 1 EACH TAB PO PRN (09:00)
[2023-07-02] MEDS ORDERED: MAG HYDROX/AL HYDROX/SIMETH 30 ML CUP PO PRN (09:00)
[2023-07-02] MEDS ORDERED: ACETAMINOPHEN TAB 325 MG TAB PO PRN (09:00)
[2023-07-02 09:15] LABS: Basophils # (A) 0.03 X 10*3/uL (0.00-0.10); Basophils % (A) 0.4 %; Eosinophils # (A) 0.05 X 10*3/uL (0.04-0.35); Eosinophils % (A) 0.6 %; HCT 38.7 % (39.6-50.0); HGB 12.9 g/dL (13.0-17.0); Lymphocytes # (A) 1.23 X 10*3/uL (0.90-5.00); Lymphocytes % (A) 15.7 %; MCH 32.9 pg (27.0-32.0); MCHC 33.3 g/dL (32.0-37.0); MCV 98.7 FL (80.0-97.0); Mean Platelet Volume 8.6 FL (9.5-12.2); Monocytes # (A) 0.77 X 10*3/uL (0.20-1.00); Monocytes % (A) 9.9 %; NRBC Per 100 WBC 0 X 10*3/uL (0.00-0.01); Platelet Count 184 X 10*3/uL (140-440); RBC 3.92 X 10*6/uL (4.40-5.60); RDW 12.4 % (11.5-14.5); WBC 7.81 X 10*3/uL (4.50-10.00)
[2023-07-02 09:51] LABS: ALT 29 U/L (10-49); AST 40 U/L (14-35); Albumin 3.7 g/dL (3.8-4.9); Albumin/Globulin Ratio 1.95 Ratio (1.60-3.17); Alkaline Phosphatase 62 U/L (41-126); BUN/Creat Ratio 13.33 Ratio (12.00-20.00); Calcium 8.3 mg/dL (8.7-10.3); Chloride 104 mmol/L (96-109); Globulin 1.9 g/dL (1.6-3.3); Glucose 91 mg/dL (70-110); Sodium 138 mmol/L (135-145); Total Bilirubin 0.2 mg/dL (0.3-1.2); Total Protein 5.6 g/dL (6.2-8.2)
--- NOTE | 2023-07-02 11:19 | P.PN ---
Subjective Progress Note Date: 07/02/23 Patient with 2 episodes of further rectal bleeding overnight. no abdominal pain. No N/V. No F/C. No SOB or CP. No lightheadedness or dizziness. Voiding without issue. Objective - Vital Signs Vital signs: Vital Signs Temp 97.9 F 07/02/23 07:00 Pulse 75 07/02/23 07:00 Resp 16 07/02/23 07:00 BP 169/98 07/02/23 07:00 Pulse Ox 100 07/02/23 07:00 FiO2 Intake & Output 07/01/23 07/02/23 07/02/23 18:59 06:59 18:59 Weight 63.503 kg Other: Voiding Method Toilet # Voids 1 - Exam Gen: AxO, NAD Pulm: non-labored respiration Abd: soft, non-tender, non-distended. No guarding/rebound/rigidity Extrem: no edema seen - Labs CBC & Chem 7: 07/02/23 03:18 07/02/23 03:18 Labs: Abnormal Lab Results - Last 24 Hours (Table) 07/01/23 07/01/23 07/01/23 Range/Units 13:10 13:37 13:37 RBC 4.18 L (4.30-5.90) m/uL Hgb (13.0-17.0) g/dL Hct (39.6-50.0) % MCV (80.0-97.0) FL MCH (27.0-32.0) pg MPV (9.5-12.2) FL APTT 21.2 L (22.0-30.0) sec D-Dimer 0.83 H (<0.60) mg/L FEU Sodium 134 L (137-145) mmol/L BUN (9.0-27.0) mg/dL Creatinine 0.49 L (0.66-1.25) mg/dL Calcium 8.2 L (8.4-10.2) mg/dL Total Bilirubin (0.3-1.2) mg/dL AST (14-35) U/L Total Protein 5.8 L (6.3-8.2) g/dL Albumin (3.8-4.9) g/dL 07/02/23 07/02/23 Range/Units 03:18 03:18 RBC 3.92 L (4.30-5.90) m/uL Hgb 12.9 L (13.0-17.0) g/dL Hct 38.7 L (39.6-50.0) % MCV 98.7 H (80.0-97.0) FL MCH 32.9 H (27.0-32.0) pg MPV 8.6 L (9.5-12.2) FL APTT (22.0-30.0) sec D-Dimer (<0.60) mg/L FEU Sodium (137-145) mmol/L BUN 8.0 L (9.0-27.0) mg/dL Creatinine (0.66-1.25) mg/dL Calcium 8.3 L (8.4-10.2) mg/dL Total Bilirubin 0.2 L (0.3-1.2) mg/dL AST 40 H (14-35) U/L Total Protein 5.6 L (6.3-8.2) g/dL Albumin 3.7 L (3.8-4.9) g/dL Assessment and Plan Assessment: Patient is a 42M who presents with signs and symptoms of lower GI bleeding Plan: -Diet as tolerated; npo at midnight on 07/03/23 -Colon prep to be completed on 07/03/23 -Plan for endoscopy on 07/04/23 -Trend H/H transfuse per primary -No acute surgical intervention Luis Alba MD General Surgery
--- NOTE | 2023-07-02 14:01 | P.HPIM ---
History of Present Illness H&P Date: 07/02/23 History of present illness; 42-year-old gentleman with past medical history significant for hypertension who presented to the ER because of complaint of blood in the stool. Patient stated he was all right 1 day back when he started noticing blood in his stools. Patient had couple of bowel movements that were mixed with bright red blood. Patient also having abdominal discomfort. Denies any hematemesis. Denies any lightheadedness or dizziness. Patient was complaining of nausea and vomiting for the last few days. Patient also having loose stools for couple of days. There was no complaint of fever or chills. There was no current loss of appetite. Denied any shortness of breath. Patient was also having some chest discomfort prior to the ER visit That has resolved. Initial lab work done in the ER showed initial lab work in the ER showed WBC 7.4, hemoglobin 13.7, platelet count 229, D-dimer 0.83. Sodium 134, potassium 4.2, troponin 0.012, Occult blood in stool positive EKG done in the ER showed heart rate of 81, no ST segment elevation or depression seen, no T-wave inversions seen. Chest x-ray done in the ER no acute cardiopulmonary osseous CT chest PE protocol negative for PE CT abdominal and pelvis done showed no acute abdominal process Patient admitted to internal medicine service REVIEW OF SYSTEMS: CONSTITUTIONAL: No fever, no malaise, no fatigue. HEENT: No recent visual problems or hearing problems. Denied any sore throat. CARDIOVASCULAR: No chest pain, orthopnea, PND, no palpitations, no syncope. PULMONARY: No shortness of breath, no cough, no hemoptysis. GASTROINTESTINAL: As mentioned HPI NEUROLOGICAL: No headaches, no weakness, no numbness. HEMATOLOGICAL: Denies any bleeding or petechiae. GENITOURINARY: Denies any burning micturition, frequency, or urgency. MUSCULOSKELETAL/RHEUMATOLOGICAL: Denies any joint pain, swelling, or any muscle pain. ENDOCRINE: Denies any polyuria or polydipsia. The rest of the 14-point review of systems is negative. PHYSICAL EXAMINATION: GENERAL: The patient is alert and oriented x3, not in any acute distress. Well developed, well nourished. HEENT: Pupils are round and equally reacting to light. EOMI. No scleral icterus. No conjunctival pallor. Normocephalic, atraumatic. No pharyngeal erythema. No thyromegaly. CARDIOVASCULAR: S1 and S2 present. No murmurs, rubs, or gallops. PULMONARY: Chest is clear to auscultation, no wheezing or crackles. ABDOMEN: Soft, nontender, nondistended, normoactive bowel sounds. No palpable organomegaly. MUSCULOSKELETAL: No joint swelling or deformity. EXTREMITIES: No cyanosis, clubbing, or pedal edema. NEUROLOGICAL: Gross neurological examination did not reveal any focal deficits. SKIN: No rashes. Assessment and plan Bright red blood per rectum Hypertension Monitor vital signs Monitor CBC Monitor CMP Continue telemetry monitoring Monitor H&H Continue IV Protonix Avoid aspirin, NSAIDs and blood thinners Continue IV fluids Continue antiemetics Resume home meds General surgery has evaluated patient, plan for patient to undergo EGD and colonoscopy, currently no GI coverage in the hospital Labs and medication were reviewed.. Continue same treatment. Continue with symptomatic treatment. Resume home medication. Monitor labs and vitals. DVT and GI prophylaxis. Further recommendations as per clinical course of the patient Dictation was produced using [employer] dictation software. please excuse any grammatical, word or spelling errors. Past Medical History Past Medical History: Hypertension Additional Past Medical History / Comment(s): Chronic back pain, head injury 2004 History of Any Multi-Drug Resistant Organisms: None Reported Additional Past Surgical History / Comment(s): brain surgery jaw surgery Past Anesthesia/Blood Transfusion Reactions: No Reported Reaction Past Psychological History: Anxiety Smoking Status: Current every day smoker Past Alcohol Use History: Occasional Past Drug Use History: Marijuana Additional Drug Use History / Comment(s): Patient uses medical marijuana - Past Family History Father Family Medical History: Coronary Artery Disease (CAD), Hyperlipidemia Medications and Allergies Home Medications Medication Instructions Recorded Confirmed Type lisinopriL 40 mg PO DAILY #30 tab 01/07/23 07/01/23 Rx Allergies Allergy/AdvReac Type Severity Reaction Status Date / Time sulfamethoxazole AdvReac Unknown Verified 07/01/23 12:53 [From Bactrim] trimethoprim [From Bactrim] AdvReac Unknown Verified 07/01/23 12:53 Physical Exam Vitals: Vital Signs Temp Pulse Pulse Resp BP BP BP 07/02/23 07:00 97.9 F 75 16 169/98 07/02/23 00:45 98.1 F 68 18 171/99 07/01/23 20:28 98.7 F 65 16 133/73 07/01/23 19:00 98.2 F 67 15 159/93 07/01/23 17:11 65 18 132/88 07/01/23 15:15 71 18 127/88 07/01/23 12:17 97.5 F L 85 17 134/96 Pulse Ox 07/02/23 07:00 100 07/02/23 00:45 100 07/01/23 20:28 98 07/01/23 19:00 99 07/01/23 17:11 100 07/01/23 15:15 99 07/01/23 12:17 99 Intake and Output 07/01/23 07/02/23 07/02/23 22:59 06:59 14:59 Other: # Voids 1 Weight 63.503 kg Results CBC & Chem 7: 07/01/23 13:10 07/01/23 13:37 Labs: Abnormal Lab Results - Last 24 Hours (Table) 07/01/23 07/01/23 07/01/23 Range/Units 13:10 13:37 13:37 RBC 4.18 L (4.30-5.90) m/uL APTT 21.2 L (22.0-30.0) sec D-Dimer 0.83 H (<0.60) mg/L FEU Sodium 134 L (137-145) mmol/L Creatinine 0.49 L (0.66-1.25) mg/dL Calcium 8.2 L (8.4-10.2) mg/dL Total Protein 5.8 L (6.3-8.2) g/dL Thrombosis Risk Factor Assmnt - Choose All That Apply Each Factor Represents 1 point: Age 41-60 years Thrombosis Risk Factor Assessment Total Risk Factor Score: 1 Thrombosis Risk Factor Assessment Level: Low Risk
[2023-07-02 23:10] LABS: Urine Alcohol Negative (Negative)
[2023-07-02 23:11] LABS: Urine Barbiturate Negative (Negative); Urine Cocaine Negative (Negative); Urine Methadone Negative (Negative); Urine Opiates Negative (Negative); Urine Phencyclidine Negative (Negative)
[2023-07-03] MEDS: SODIUM CHLORIDE 0.9% 1,000 ML IV ONE (10:32)
[2023-07-03 11:11] LABS: HCT 46.2 % (39.0-53.0); HGB 15.3 gm/dL (13.0-17.5); MCH 32.9 pg (25.0-35.0); MCHC 33.1 g/dL (31.0-37.0); MCV 99.5 fL (80.0-100.0); Mean Platelet Volume 7.1; Platelet Count 260 k/uL (150-450); RBC 4.64 m/uL (4.30-5.90); RDW 12.9 % (11.5-15.5); WBC 7.8 k/uL (3.8-10.6)
--- NOTE | 2023-07-03 11:28 | P.PN ---
Subjective Progress Note Date: 07/03/23 Has GI Bleed. Start prep at noon. Plan for EGD and colon. Care plan reviewed with patient. He is ambulating. Clear liquid diet today. Objective - Vital Signs Vital signs: Vital Signs Temp 97.7 F 07/03/23 07:00 Pulse 58 L 07/03/23 07:00 Resp 16 07/03/23 07:00 BP 146/85 07/03/23 07:00 Pulse Ox 100 07/03/23 07:00 FiO2 Intake & Output 07/02/23 07/03/23 07/03/23 18:59 06:59 18:59 Intake Total 236 240 Balance 236 240 Intake: Oral 236 240 Other: Voiding Method Toilet Toilet # Voids 3 3 # Bowel Movements 1 - Labs CBC & Chem 7: 07/03/23 10:53 07/02/23 03:18 Labs: Abnormal Lab Results - Last 24 Hours (Table) 07/02/23 Range/Units 11:10 U Cannabinoids Screen Positive A (Negative)
[2023-07-03 11:55] LABS: ALT 35 U/L (4-49); AST 34 U/L (17-59); African American GFR (CKD) >90 (>60 ml/min/1.73 sqM); Albumin 4.7 g/dL (3.5-5.0); Albumin/Globulin Ratio 1.6; Alkaline Phosphatase 69 U/L (38-126); Anion Gap 10 mmol/L; Blood Urea Nitrogen 4 mg/dL (9-20); Calcium 9.2 mg/dL (8.4-10.2); Carbon Dioxide 26 mmol/L (22-30); Chloride 102 mmol/L (98-107); Glucose 122 mg/dL (74-99); Non-African American GFR(CKD) >90 (>60 ml/min/1.73 sqM); Potassium 4.2 mmol/L (3.5-5.1); Sodium 138 mmol/L (137-145); Total Bilirubin 0.4 mg/dL (0.2-1.3); Total Protein 7.7 g/dL (6.3-8.2)
[2023-07-03] MEDS: PEG 3350 (236 GM/BTL) + LYTES 4,000 ML BOTTLE PO ONE (12:09)
[2023-07-03] MEDS: SODIUM CHLORIDE 0.9% 1,000 ML IV SCH (12:10)
--- NOTE | 2023-07-03 12:46 | P.PN ---
Subjective Progress Note Date: 07/03/23 42-year-old gentleman with past medical history significant for hypertension who presented to the ER because of complaint of blood in the stool. Patient stated he was all right 1 day back when he started noticing blood in his stools. Patient had couple of bowel movements that were mixed with bright red blood. Patient also having abdominal discomfort. Denies any hematemesis. Denies any lightheadedness or dizziness. Patient was complaining of nausea and vomiting for the last few days. Patient also having loose stools for couple of days. There was no complaint of fever or chills. There was no current loss of appetite. Denied any shortness of breath. Patient was also having some chest discomfort prior to the ER visit That has resolved. Initial lab work done in the ER showed initial lab work in the ER showed WBC 7.4, hemoglobin 13.7, platelet count 229, D-dimer 0.83. Sodium 134, potassium 4.2, troponin 0.012, Occult blood in stool positive EKG done in the ER showed heart rate of 81, no ST segment elevation or depression seen, no T-wave inversions seen. Chest x-ray done in the ER no acute cardiopulmonary osseous CT chest PE protocol negative for PE CT abdominal and pelvis done showed no acute abdominal process Patient admitted to internal medicine service 07/02. Patient seen and examined. Patient still having stools which are liquidy, no blood in it. Hemoglobin is 15.2. Being prepped for colonoscopy for tomorrow REVIEW OF SYSTEMS: CONSTITUTIONAL: No fever, no malaise,. CARDIOVASCULAR: No chest pain, no palpitations, no syncope. PULMONARY: No shortness of breath, no cough, GASTROINTESTINAL: no nausea, no vomiting, no abdominal pain. NEUROLOGICAL: No headaches, no weakness, PHYSICAL EXAMINATION: GENERAL: The patient is alert and oriented x3, not in any acute distress. Well developed, well nourished. HEENT: Pupils are round and equally reacting to light. EOMI. No scleral icterus. No conjunctival pallor. Normocephalic, atraumatic. No pharyngeal erythema. No thyromegaly. CARDIOVASCULAR: S1 and S2 present. No murmurs, rubs, or gallops. PULMONARY: Chest is clear to auscultation, no wheezing or crackles. ABDOMEN: Soft, nontender, nondistended, normoactive bowel sounds. No palpable organomegaly. MUSCULOSKELETAL: No joint swelling or deformity. EXTREMITIES: No cyanosis, clubbing, or pedal edema. NEUROLOGICAL: Gross neurological examination did not reveal any focal deficits. SKIN: No rashes. Assessment and plan Bright red blood per rectum Hypertension Monitor vital signs Monitor CBC Monitor CMP Continue telemetry monitoring Monitor H&H Continue IV Protonix Avoid aspirin, NSAIDs and blood thinners Continue IV fluids Continue antiemetics General surgery has evaluated patient, plan for patient to undergo EGD and colonoscopy on Tuesday, currently no GI coverage in the hospital Labs and medication were reviewed.. Continue same treatment. Continue with symptomatic treatment. Resume home medication. Monitor labs and vitals. DVT and GI prophylaxis. Further recommendations as per clinical course of the patient Dictation was produced using [employer] dictation software. please excuse any grammatical, word or spelling errors. Objective - Vital Signs Vital signs: Vital Signs Temp 97.7 F 07/03/23 07:00 Pulse 58 L 07/03/23 07:00 Resp 16 07/03/23 07:00 BP 146/85 07/03/23 07:00 Pulse Ox 100 07/03/23 07:00 FiO2 Intake & Output 07/02/23 07/03/23 07/03/23 18:59 06:59 18:59 Intake Total 236 240 Balance 236 240 Intake: Oral 236 240 Other: Voiding Method Toilet # Voids 3 3 # Bowel Movements 1 - Labs CBC & Chem 7: 07/03/23 10:53 07/03/23 10:53 Labs: Abnormal Lab Results - Last 24 Hours (Table) 07/02/23 Range/Units 11:10 U Cannabinoids Screen Positive A (Negative)
[2023-07-04] MEDS ORDERED: LIDOCAINE 1% INJ 10MG/ML (20 ML MDV) ONE (08:26)
[2023-07-04] MEDS ORDERED: PROPOFOL 10 MG/ML 20 ML VIAL IV ONE (08:26)
[2023-07-04] MEDS: IV FLUID CONTINUATION 1,000 ML IV ONE ×2 (08:28→08:55)
--- NOTE | 2023-07-04 09:06 | P.PCN ---
Date of Procedure: 07/04/23 Description of Procedure: PREOPERATIVE DIAGNOSIS: Acute blood loss anemia Positive occult stool Gastrointestinal bleeding POSTOPERATIVE DIAGNOSIS: Colitis without active OPERATION: Colonoscopy to the cecum, ileocecal valve and appendiceal orifice Colonoscopy with random biopsies for colitis SURGEON: Alley Omalley MD. ANESTHESIA: MAC. INDICATIONS: The patient is a 42-year-old male who presents with gastrointestinal bleeding and positive occult stool. Benefits and risks were described and informed consent was obtained. DESCRIPTION OF PROCEDURE: The patient had undergone attempted Golytely prep 4 L. The patient had been brought into the operating room and laid in the left lateral decubitus position. After adequate intravenous sedation, the rectum was examined with 2% lidocaine jelly. External hemorrhoids were identified. An Olympus colonoscope was gently advanced to the cecum with clear visualization of the ileocecal valve including appendiceal orifice. The prep was good. No diverticulosis was found. No active colonic bleeding was found. No intraluminal masses were identified within the colon. No colonic polyps were found. Diffuse colitis was identified with random biopsies obtained. Retroflexion of the scope demonstrated grade 1 internal hemorrhoids with recent inflammation. The colon was desufflated. The patient had tolerated the procedure well. Withdrawal time was over 6 minutes. FINDINGS: Aronchick preparation quality scale 2 (1-5) Internal hemorrhoids, grade 1 No thrombosed hemorrhoid identified. No arteriovenous malformations. No adenomatous polyps. Random biopsies for colitis without bleeding RECOMMENDATIONS: 1. Diet as tolerated 2. Await biopsies for targeted treatment for colitis
--- NOTE | 2023-07-04 09:10 | P.PCN ---
Date of Procedure: 07/04/23 Description of Procedure: PREOPERATIVE DIAGNOSIS: Acute gastrointestinal bleeding Positive stool occult blood POSTOPERATIVE DIAGNOSIS: Moderate duodenitis without active bleeding OPERATION: Esophagogastroduodenoscopy with biopsies antrum, duodenum SURGEON: Alley Omalley MD ANESTHESIA: MAC. INDICATIONS: The patient is a 42-year-old male who presents with gastrointestinal bleeding. Benefits and risks of the procedure were described. Informed consent was obtained. DESCRIPTION: The patient was brought into the endoscopy suite and laid in the left lateral decubitus position. An Olympus gastroscope was passed along the posterior oropharynx down to the distal esophagus where the squamocolumnar junction was encountered at 43 cm from the incisors. The stomach was entered and no bile reflux was found. Additional findings are listed below. The first through third portion of the duodenum was examined with active duodenitis without bleeding. Retroflexion of the scope confirmed Hill grade 2 lower esophageal valve. The squamocolumnar junction demonstrated LA grade B erosive esophagitis. The stomach was desufflated. The patient tolerated the procedure well. FINDINGS: Squamocolumnar junction 43 cm from the incisors. Diaphragmatic hiatus at 43 cm. Hill grade 2 lower esophageal valve. LA grade A erosive esophagitis. Active duodenitis without bleeding. Biopsies obtained. Acute gastric ulcers. RECOMMENDATIONS: 1. Continue Protonix 40 mg daily 2. Diet as tolerated 3. Await biopsies for targeted treatment Plan - Discharge Summary New Discharge Prescriptions: No Action lisinopriL 40 mg PO DAILY #30 tab Discharge Medication List lisinopriL 40 mg PO DAILY #30 tab 01/07/23 [Rx] Follow up Appointment(s)/Referral(s): None,Stated [Primary Care Provider] - 1-2 days
[2023-07-04 09:11] LABS: ALT 27 U/L (4-49); AST 29 U/L (17-59); African American GFR (CKD) >90 (>60 ml/min/1.73 sqM); Albumin 3.3 g/dL (3.5-5.0); Albumin/Globulin Ratio 1.4; Alkaline Phosphatase 56 U/L (38-126); Anion Gap 4 mmol/L; Blood Urea Nitrogen <2 mg/dL (9-20); Calcium 8.6 mg/dL (8.4-10.2); Carbon Dioxide 28 mmol/L (22-30); Chloride 106 mmol/L (98-107); Globulin 2.4 g/dL; Glucose 99 mg/dL (74-99); Magnesium 1.5 mg/dL (1.6-2.3); Non-African American GFR(CKD) >90 (>60 ml/min/1.73 sqM); Potassium 3.7 mmol/L (3.5-5.1); Sodium 138 mmol/L (137-145); Total Bilirubin 0.4 mg/dL (0.2-1.3); Total Protein 5.7 g/dL (6.3-8.2)
[2023-07-04] MEDS ORDERED: Magnesium Replacement Protocol 1 EACH MISC MISCELLANE PRN (09:43)
[2023-07-04] MEDS: MAGNESIUM SULFATE-D5W PMX 1 GM in DEXTROSE/WATER 1 100ML.BAG IVPB SCH (10:05)
[2023-07-04 11:15] LABS: HCT 35.5 % (39.6-50.0); HGB 12.2 g/dL (13.0-17.0); MCH 32.8 pg (27.0-32.0); MCHC 34.4 g/dL (32.0-37.0); MCV 95.4 FL (80.0-97.0); Mean Platelet Volume 8.5 FL (9.5-12.2); NRBC Per 100 WBC 0 X 10*3/uL (0.00-0.01); Platelet Count 182 X 10*3/uL (140-440); RBC 3.72 X 10*6/uL (4.40-5.60); RDW 12.1 % (11.5-14.5); WBC 5.41 X 10*3/uL (4.50-10.00)
[2023-07-04 11:27] LABS: BUN/Creat Ratio <5.00 Ratio (12.00-20.00)
[2023-07-04] MEDS: hydrALAZINE HCL 20 MG/ML 1 ML VIAL IVP STA (11:37)
[2023-07-04] MEDS: metroNIDAZOLE-NS PMX 500 MG in SALINE 1 100ML.BAG IVPB SCH (12:33)
[2023-07-05] MEDS: MELATONIN 5 MG TABLET PO PRN (04:10)
--- NOTE | 2023-07-05 06:12 | P.PN ---
Subjective Progress Note Date: 07/04/23 42-year-old gentleman with past medical history significant for hypertension who presented to the ER because of complaint of blood in the stool. Patient stated he was all right 1 day back when he started noticing blood in his stools. Patient had couple of bowel movements that were mixed with bright red blood. Patient also having abdominal discomfort. Denies any hematemesis. Denies any lightheadedness or dizziness. Patient was complaining of nausea and vomiting for the last few days. Patient also having loose stools for couple of days. There was no complaint of fever or chills. There was no current loss of appetite. Denied any shortness of breath. Patient was also having some chest discomfort prior to the ER visit That has resolved. Initial lab work done in the ER showed initial lab work in the ER showed WBC 7.4, hemoglobin 13.7, platelet count 229, D-dimer 0.83. Sodium 134, potassium 4.2, troponin 0.012, Occult blood in stool positive EKG done in the ER showed heart rate of 81, no ST segment elevation or depression seen, no T-wave inversions seen. Chest x-ray done in the ER no acute cardiopulmonary osseous CT chest PE protocol negative for PE CT abdominal and pelvis done showed no acute abdominal process Patient admitted to internal medicine service 07/02. Patient seen and examined. Patient still having stools which are liquidy, no blood in it. Hemoglobin is 15.2. Being prepped for colonoscopy for tomorrow 07/04/2023 Patient is seen in follow-up this morning scheduled to undergo EGD/colonoscopy and reports no blood in the stool and tolerated the prep. Hemoglobin is stable above 12 with no active bleeding noted. Magnesium slightly low and will replace per protocol. Patient is continued on IV Protonix daily and currently n.p.o. while awaiting surgical intervention. Patient is afebrile with no reported shortness of breath. Patient slightly anxious about overall current situation and having some acid reflux type burning. No reported nausea or vomiting noted. Patient's blood pressure is currently elevated and medications were on hold for the EGD/colonoscopy. REVIEW OF SYSTEMS: CONSTITUTIONAL: No fever, no malaise,. CARDIOVASCULAR: No chest pain, no palpitations, no syncope. Reports epigastric pain/discomfort PULMONARY: No shortness of breath, no cough, GASTROINTESTINAL: no nausea, no vomiting, no abdominal pain. NEUROLOGICAL: No headaches, no weakness, PHYSICAL EXAMINATION: GENERAL: The patient is alert and oriented x3, not in any acute distress. Well developed, well nourished. HEENT: Pupils are round and equally reacting to light. EOMI. No scleral icterus. No conjunctival pallor. Normocephalic, atraumatic. No pharyngeal erythema. No thyromegaly. CARDIOVASCULAR: S1 and S2 present. No murmurs, rubs, or gallops. PULMONARY: Chest is clear to auscultation, no wheezing or crackles. ABDOMEN: Soft, nontender, nondistended, normoactive bowel sounds. No palpable organomegaly. MUSCULOSKELETAL: No joint swelling or deformity. EXTREMITIES: No cyanosis, clubbing, or pedal edema. NEUROLOGICAL: Gross neurological examination did not reveal any focal deficits. SKIN: No rashes. Assessment: Bright red blood per rectum Hypertension Hypomagnesemia secondary to poor oral intake History of anxiety THC use Continued ongoing nicotine dependence GI prophylaxis DVT prophylaxis Full code Plan: Monitor hemoglobin and transfuse if symptomatic. Hemoglobin is above 12.2 today with no active bleeding noted. Patient scheduled for EGD/colonoscopy with general surgery which is pending final report Continue n.p.o. until cleared by surgery to advance diet Continue with Protonix twice daily Encouraged increase activity as tolerated Magnesium slightly low will replace per protocol follow-up with repeat labs Will discuss with general surgery regarding discharge planning Possible discharge in the next 24 to 48 hours The impression and plan of care has been dictated by Jolie Kim, Nurse Practitioner as directed. Dr. Gurpreet MD I have performed a history and examination and MDM of this patient, discussed the same with the dictator, and agree with the dictator's assessment and plan as written ,documented as a scribe. Based on total visit time, I have performed more than 50% of the visit. Objective - Vital Signs Vital signs: Vital Signs Temp 98.6 F 07/04/23 07:00 Pulse 53 L 07/04/23 07:00 Resp 16 07/04/23 07:00 BP 162/90 07/04/23 07:00 Pulse Ox 100 07/04/23 07:00 FiO2 Intake & Output 07/03/23 07/04/23 07/04/23 18:59 06:59 18:59 Intake Total 240 600 Output Total 3 Balance 240 -3 600 Intake: IV 600 Oral 240 Output: Urine 3 Other: Voiding Method Toilet # Voids 4 2 # Bowel Movements 1 - Labs CBC & Chem 7: 07/04/23 06:26 07/04/23 06:26 Labs: Abnormal Lab Results - Last 24 Hours (Table) 07/03/23 07/04/23 Range/Units 10:53 06:26 BUN 4 L <2 L (9-20) mg/dL Creatinine 0.52 L 0.58 L (0.66-1.25) mg/dL Glucose 122 H (74-99) mg/dL Magnesium 1.5 L (1.6-2.3) mg/dL Total Protein 5.7 L (6.3-8.2) g/dL Albumin 3.3 L (3.5-5.0) g/dL
[2023-07-05 11:47] LABS: Basophils # (A) 0.03 X 10*3/uL (0.00-0.10); Basophils % (A) 0.5 %; Eosinophils # (A) 0.05 X 10*3/uL (0.04-0.35); Eosinophils % (A) 0.9 %; HCT 38.5 % (39.6-50.0); HGB 13.4 g/dL (13.0-17.0); Lymphocytes # (A) 2.04 X 10*3/uL (0.90-5.00); Lymphocytes % (A) 34.7 %; MCHC 34.8 g/dL (32.0-37.0); MCV 94.8 FL (80.0-97.0); Mean Platelet Volume 8.5 FL (9.5-12.2); Monocytes # (A) 0.41 X 10*3/uL (0.20-1.00); NRBC Per 100 WBC 0 X 10*3/uL (0.00-0.01); Neutrophils # (A) 3.33 X 10*3/uL (1.80-7.70); Neutrophils % (A) 56.6 %; Platelet Count 223 X 10*3/uL (140-440); RBC 4.06 X 10*6/uL (4.40-5.60); WBC 5.88 X 10*3/uL (4.50-10.00)
[2023-07-05 11:50] LABS: ALT 29 U/L (10-49); AST 27 U/L (14-35); Albumin 4.3 g/dL (3.8-4.9); Albumin/Globulin Ratio 1.87 Ratio (1.60-3.17); Alkaline Phosphatase 59 U/L (41-126); BUN/Creat Ratio 9.83 Ratio (12.00-20.00); Blood Urea Nitrogen 5.9 mg/dL (9.0-27.0); Calcium 9.2 mg/dL (8.7-10.3); Carbon Dioxide 27.3 mmol/L (21.6-31.8); Chloride 106 mmol/L (96-109); Globulin 2.3 g/dL (1.6-3.3); Glucose 104 mg/dL (70-110); Potassium 5.3 mmol/L (3.5-5.5); Sodium 143 mmol/L (135-145); Total Bilirubin 0.2 mg/dL (0.3-1.2); Total Protein 6.6 g/dL (6.2-8.2)
[2023-07-05] MEDS: SCOPOLAMINE 1 MG/72 HR PATCH TRANSDERM SCH (12:09)
--- NOTE | 2023-07-05 14:15 | P.PN ---
Subjective Progress Note Date: 07/05/23 CHIEF COMPLAINT: Epigastric pain HISTORY OF PRESENT ILLNESS: Patient status post EGD and colonoscopy with results showing moderate duodenitis without active bleeding and colitis without bleeding. Biopsy results pending. Patient reports he is not feeling well today. He had nausea and 1 episode of emesis with a small amount of blood. He is now having diarrhea. Patient currently on Flagyl for colitis. Patient has been taking his own Suboxone pills. Nursing staff was notified. Patient reports that he is out of pills. Afebrile. WBC 5.8 Hgb 13.4 platelets 223 sodium is 143 potassium 5.3 creatinine 0.6 PHYSICAL EXAM: VITAL SIGNS: Reviewed GENERAL: Well-developed in no acute distress. HEENT: No sclera icterus. Extraocular movements grossly intact. Moist buccal mucosa. Head is atraumatic, normocephalic. Hears conversational speech. No nasal drainage. NECK: Supple without lymphadenopathy. CHEST: Non-labored respirations and equal bilateral excursions. CARDIOVASCULAR: Palpable 2+ radial pulses. ABDOMEN: Soft. Nondistended. MUSCULOSKELETAL: No clubbing or cyanosis. NEUROLOGIC: No focal or lateralizing signs. Cranial nerves II through XII grossly intact. PSYCH: Appropriate affect. Alert and oriented to person, place and time. SKIN: Well perfused. Good skin turgor. ASSESSMENT: 1. Epigastric abdominal pain 2. Status post EGD with duodenitis without active bleeding 3. Colitis noted on colonoscopy without active bleeding PLAN: -Continue Flagyl for colitis -Add scopolamine patch for nausea -Continue supportive care -Continue low fiber diet Physician Paper Sheeter note has been reviewed by physician. Signing provider agrees with the documented findings, assessment, and plan of care. Objective - Vital Signs Vital signs: Vital Signs Temp 97.5 F L 07/05/23 07:05 Pulse 58 L 07/05/23 07:05 Resp 17 07/05/23 07:05 BP 155/84 07/05/23 07:05 Pulse Ox 100 07/05/23 07:05 FiO2 Intake & Output 07/04/23 07/05/23 07/05/23 18:59 06:59 18:59 Intake Total 600 236 Balance 600 236 Intake: IV 600 Oral 0 236 Other: Voiding Method Toilet # Voids 3 2 - Labs CBC & Chem 7: 07/05/23 06:13 07/05/23 06:13 Labs: Abnormal Lab Results - Last 24 Hours (Table) 07/05/23 07/05/23 Range/Units 06:13 06:13 RBC 4.06 L (4.40-5.60) X 10*6/uL Hct 38.5 L (39.6-50.0) % MCH 33.0 H (27.0-32.0) pg MPV 8.5 L (9.5-12.2) FL BUN 5.9 L (9.0-27.0) mg/dL BUN/Creatinine Ratio 9.83 L (12.00-20.00) Ratio Total Bilirubin 0.2 L (0.3-1.2) mg/dL
[2023-07-05] MEDS: BUPRENORPHINE-NALOX 8-2 MG TAB 1 EACH TAB.SUBL SL SCH (18:45)
--- NOTE | 2023-07-06 05:37 | P.PN ---
Subjective Progress Note Date: 07/05/23 42-year-old gentleman with past medical history significant for hypertension who presented to the ER because of complaint of blood in the stool. Patient stated he was all right 1 day back when he started noticing blood in his stools. Patient had couple of bowel movements that were mixed with bright red blood. Patient also having abdominal discomfort. Denies any hematemesis. Denies any lightheadedness or dizziness. Patient was complaining of nausea and vomiting for the last few days. Patient also having loose stools for couple of days. There was no complaint of fever or chills. There was no current loss of appetite. Denied any shortness of breath. Patient was also having some chest discomfort prior to the ER visit That has resolved. Initial lab work done in the ER showed initial lab work in the ER showed WBC 7.4, hemoglobin 13.7, platelet count 229, D-dimer 0.83. Sodium 134, potassium 4.2, troponin 0.012, Occult blood in stool positive EKG done in the ER showed heart rate of 81, no ST segment elevation or depression seen, no T-wave inversions seen. Chest x-ray done in the ER no acute cardiopulmonary osseous CT chest PE protocol negative for PE CT abdominal and pelvis done showed no acute abdominal process Patient admitted to internal medicine service 07/02. Patient seen and examined. Patient still having stools which are liquidy, no blood in it. Hemoglobin is 15.2. Being prepped for colonoscopy for tomorrow 07/04/2023 Patient is seen in follow-up this morning scheduled to undergo EGD/colonoscopy and reports no blood in the stool and tolerated the prep. Hemoglobin is stable above 12 with no active bleeding noted. Magnesium slightly low and will replace per protocol. Patient is continued on IV Protonix daily and currently n.p.o. while awaiting surgical intervention. Patient is afebrile with no reported shortness of breath. Patient slightly anxious about overall current situation and having some acid reflux type burning. No reported nausea or vomiting noted. Patient's blood pressure is currently elevated and medications were on hold for the EGD/colonoscopy. 07/05/2023 Patient seen and evaluated in follow-up today with general surgery following. Patient is status post EGD/colonoscopy showing moderate duodenitis as well as colitis with no active bleeding. Patient is reporting having some nausea with 1 episode of vomiting and continued diarrhea. Patient has been started on low fiber diet per surgery and reports is eating but not much. Patient does take Suboxone outpatient and reports is out of his medication. Verified at [facility] although he was living in [place] where he receives them. Patient is currently living with his grandma here in [place] as she was diagnosed with colon cancer. Patient is afebrile with no reported chest pain or shortness of breath. Patient having some epigastric discomfort and is maintained on IV Protonix twice daily. Encouraged to increase activity as tolerated. REVIEW OF SYSTEMS: CONSTITUTIONAL: No fever, no malaise,. CARDIOVASCULAR: No chest pain, no palpitations, no syncope. Reports epigastric pain/discomfort PULMONARY: No shortness of breath, no cough GASTROINTESTINAL: Reports nausea, 1 episode of vomiting, no abdominal pain. Reports multiple episodes of diarrhea NEUROLOGICAL: No headaches, no weakness PHYSICAL EXAMINATION: GENERAL: The patient is alert and oriented x3, not in any acute distress. Well developed, well nourished. HEENT: Pupils are round and equally reacting to light. EOMI. No scleral icterus. No conjunctival pallor. Normocephalic, atraumatic. No pharyngeal erythema. No thyromegaly. CARDIOVASCULAR: S1 and S2 present. No murmurs, rubs, or gallops. PULMONARY: Chest is clear to auscultation, no wheezing or crackles. ABDOMEN: Soft, nontender, nondistended, normoactive bowel sounds. No palpable organomegaly. MUSCULOSKELETAL: No joint swelling or deformity. EXTREMITIES: No cyanosis, clubbing, or pedal edema. NEUROLOGICAL: Gross neurological examination did not reveal any focal deficits. SKIN: No rashes. Assessment: Bright red blood per rectum status post EGD/colonoscopy showing moderate duodenitis and colitis with no active bleeding Hypertension history, uncontrolled Hypomagnesemia secondary to poor oral intake, replaced and improved History of anxiety THC use Continued ongoing nicotine dependence History of brain injury previously GI prophylaxis DVT prophylaxis Full code Plan: Monitor hemoglobin and transfuse if symptomatic. Hemoglobin is above 13 today with no active bleeding noted. Status post EGD/colonoscopy with general surgery showing moderate duodenitis and acute colitis with no active bleeding Continue low fiber diet for now per surgery, continue antinausea medications as well. Patient reports having some nausea with 1 episode of vomiting today Continue with Protonix twice daily Encouraged increase activity as tolerated Magnesium replaced and improved Will discuss with general surgery regarding discharge planning Patient reports has a history of a brain injury and was taking morphine for quite some time and has transitioned over to Suboxone for the last 4 years. Patient reports he follows with a pain management in [place] where he was residing and is out of medication. Patient has been staying up here in [place] with his grandma who was recently diagnosed with colon cancer. Suboxone verified and will reorder. Patient will need outpatient follow-up with pain management Possible discharge in the next 24 to 48 hours The impression and plan of care has been dictated by Jolie Kim, Nurse Practitioner as directed. Dr. Gurpreet MD I have performed a history and examination and MDM of this patient, discussed the same with the dictator, and agree with the dictator's assessment and plan as written ,documented as a scribe. Based on total visit time, I have performed more than 50% of the visit. Objective - Vital Signs Vital signs: Vital Signs Temp 97.5 F L 07/05/23 07:05 Pulse 58 L 07/05/23 07:05 Resp 17 07/05/23 07:05 BP 155/84 07/05/23 07:05 Pulse Ox 100 07/05/23 07:05 FiO2 Intake & Output 07/04/23 07/05/23 07/05/23 18:59 06:59 18:59 Intake Total 600 236 Balance 600 236 Intake: IV 600 Oral 0 236 Other: Voiding Method Toilet # Voids 3 2 - Labs CBC & Chem 7: 07/05/23 06:13 07/05/23 06:13 Labs: Abnormal Lab Results - Last 24 Hours (Table) 07/04/23 07/04/23 Range/Units 06:26 06:26 RBC 3.72 L (4.40-5.60) X 10*6/uL Hgb 12.2 L (13.0-17.0) g/dL Hct 35.5 L (39.6-50.0) % MCH 32.8 H (27.0-32.0) pg MPV 8.5 L (9.5-12.2) FL BUN/Creatinine Ratio <5.00 L (12.00-20.00) Ratio
[2023-07-06] MEDS ORDERED: hydrALAZINE HCL 20 MG/ML 1 ML VIAL IVP PRN (10:13)
[2023-07-06] MEDS: amLODIPine 10 MG TAB PO SCH (10:56)
--- NOTE | 2023-07-06 13:33 | P.PN ---
Subjective Progress Note Date: 07/06/23 CHIEF COMPLAINT: Epigastric pain HISTORY OF PRESENT ILLNESS: Patient status post EGD and colonoscopy with results showing moderate duodenitis without active bleeding and colitis without bleeding. Patient reports he is feeling better today. He has been up and ambulating the hallway. Tolerating diet. Path results from EGD and colonoscopy had reported mild active duodenitis and moderate active colitis. Afebrile PHYSICAL EXAM: VITAL SIGNS: Reviewed GENERAL: Well-developed in no acute distress. HEENT: No sclera icterus. Extraocular movements grossly intact. Moist buccal mucosa. Head is atraumatic, normocephalic. Hears conversational speech. No nasal drainage. NECK: Supple without lymphadenopathy. CHEST: Non-labored respirations and equal bilateral excursions. CARDIOVASCULAR: Palpable 2+ radial pulses. ABDOMEN: Soft. Nondistended. MUSCULOSKELETAL: No clubbing or cyanosis. NEUROLOGIC: No focal or lateralizing signs. Cranial nerves II through XII grossly intact. PSYCH: Appropriate affect. Alert and oriented to person, place and time. SKIN: Well perfused. Good skin turgor. ASSESSMENT: 1. Epigastric abdominal pain improved. Possibly due to patient's duodenitis 2. Status post EGD with duodenitis without active bleeding 3. Colitis noted on colonoscopy without active bleeding PLAN: -Patient can be discharged from surgical standpoint -Medical management for colitis. Agree with continuing Flagyl. Physician Foot Piece Assembler note has been reviewed by physician. Signing provider agrees with the documented findings, assessment, and plan of care. Objective - Vital Signs Vital signs: Vital Signs Temp 98.1 F 07/06/23 07:00 Pulse 63 07/06/23 10:32 Resp 16 07/06/23 07:00 BP 146/78 07/06/23 10:32 Pulse Ox 97 07/06/23 07:00 FiO2 Intake & Output 07/05/23 07/06/23 07/06/23 18:59 06:59 18:59 Intake Total 236 240 Balance 236 240 Intake: Oral 236 240 Other: Voiding Method Toilet # Voids 2 1 # Bowel Movements 1 - Labs CBC & Chem 7: 07/05/23 06:13 07/05/23 06:13
[2023-07-06 15:15] VITALS: BP 168/90; PULSE 62; RESP 15; TEMP 97.5
== END 2023-07-06 17:28 | disposition home or self-care (01) ==
LOC: EC 12:15 → 6NMEDSUR 17:07
PROVIDERS: ADMIT Internal Medicine; ATTEND Internal Medicine
DX: K52.9 Noninfective gastroenteritis and colitis, unspecified (principal); K31.9 Disease of stomach and duodenum, unspecified; I10 Essential (primary) hypertension; M54.50 Low back pain, unspecified; G89.29 Other chronic pain; F41.9 Anxiety disorder, unspecified; F17.200 Nicotine dependence, unspecified, uncomplicated
CPT/HCPCS: 96361 ×2; 96374; 96376 ×3; 99285; 36415; 93005; 85379; 88305; 80053 ×5; 83735 ×3; 84484; 85025 ×3; 85027 ×2; 85610; 85730; 82272; 80306; 71046; 71275; 74177; 45380; 43239; G0378 ×6; J0360; J3475; C9113 ×6; Q9967; J1836 ×3

== ENCOUNTER 2023-07-22 19:59 | Inpatient (IN) | payer OTHER ==
[2023-07-22 22:43] LABS: Basophils % (A) 1 %; Eosinophils % (A) 1 %; HCT 39.5 % (39.0-53.0); HGB 13.5 gm/dL (13.0-17.5); Lymphocytes # (A) 2.5 k/uL (1.0-4.8); Lymphocytes % (A) 37 %; MCH 32.4 pg (25.0-35.0); MCHC 34.1 g/dL (31.0-37.0); MCV 95.1 fL (80.0-100.0); Mean Platelet Volume 7.1; Monocytes # (A) 0.4 k/uL (0-1.0); Monocytes % (A) 7 %; Neutrophils # (A) 3.5 k/uL (1.3-7.7); Neutrophils % (A) 52 %; Platelet Count 202 k/uL (150-450); RBC 4.15 m/uL (4.30-5.90); RDW 12.5 % (11.5-15.5); WBC 6.8 k/uL (3.8-10.6)
[2023-07-22 22:50] LABS: INR 0.9 (<1.2); Partial Thromboplastin Time 22.6 sec (22.0-30.0); Prothrombin Time 10.3 sec (10.0-12.5)
[2023-07-22 22:56] LABS: ALT 52 U/L (4-49); AST 76 U/L (17-59); African American GFR (CKD) >90 (>60 ml/min/1.73 sqM); Albumin 4.5 g/dL (3.5-5.0); Alkaline Phosphatase 66 U/L (38-126); Anion Gap 12 mmol/L; Blood Urea Nitrogen 6 mg/dL (9-20); Calcium 9.1 mg/dL (8.4-10.2); Carbon Dioxide 26 mmol/L (22-30); Chloride 103 mmol/L (98-107); Glucose 72 mg/dL (74-99); Lipase 109 U/L (23-300); Non-African American GFR(CKD) >90 (>60 ml/min/1.73 sqM); Potassium 3.9 mmol/L (3.5-5.1); Sodium 141 mmol/L (137-145); Total Bilirubin 0.4 mg/dL (0.2-1.3)
--- NOTE | 2023-07-22 23:04 | ED ---
Abdominal Pain HPI - General Chief Complaint: Abdominal Pain Stated Complaint: Vomiting blood Time Seen by Provider: 07/22/23 21:51 Source: patient Mode of arrival: ambulatory Limitations: no limitations - History of Present Illness Initial Comments: Eusebio 42-year-old male who presents to the ER via private vehicle for reevaluation of persistent abdominal pain. The patient was admitted earlier this month with GI bleed and found to have duodenitis and colitis. Patient was discharged home with antibiotics, PPI and antihypertensives. Patient states t hat his diarrhea and abdominal discomfort began after being bitten by dog and he states he is concerned that he has parvo. Patient states that in May he was bit by dog and had lacerations to the hand arm and leg, these lacerations were repaired he did receive antibiotics and shortly after developed the abdominal pain diarrhea. Patient states that when he was admitted last time he was having scant blood in his stool but now seems to be having more frequent blood and larger clots. Patient states that he has lost 30 pounds in the past month. - Related Data Previous Rx's Medication Instructions Recorded Acetaminophen Tab [Tylenol] 650 mg PO Q6HR PRN tab 07/06/23 Buprenorphine-Nalox 8-2 mg Tab 1 each SL BID tab 07/06/23 [Suboxone 8-2 mg Tab] HYDROcodone/APAP 5-325MG [[place] 1 each PO Q6HR PRN #4 tab 07/06/23 5-325] Pantoprazole [Protonix] 40 mg PO DAILY #30 tab 07/06/23 lisinopriL 40 mg PO DAILY 30 Days #30 tab 07/06/23 metroNIDAZOLE [Flagyl] 500 mg PO TID 7 Days #21 tab 07/06/23 Allergies Allergy/AdvReac Type Severity Reaction Status Date / Time sulfamethoxazole AdvReac Unknown Verified 07/01/23 12:53 [From Bactrim] trimethoprim [From Bactrim] AdvReac Unknown Verified 07/01/23 12:53 Review of Systems ROS Statement: Those systems with pertinent positive or pertinent negative responses have been documented in the HPI. ROS Other: All systems not noted in ROS Statement are negative. Past Medical History Past Medical History: Hypertension Additional Past Medical History / Comment(s): Chronic back pain, head injury 2004 History of Any Multi-Drug Resistant Organisms: None Reported Additional Past Surgical History / Comment(s): brain surgery jaw surgery Past Anesthesia/Blood Transfusion Reactions: No Reported Reaction Past Psychological History: Anxiety Smoking Status: Current every day smoker Past Alcohol Use History: Occasional Past Drug Use History: Marijuana - Past Family History Father Family Medical History: Coronary Artery Disease (CAD), Hyperlipidemia General Exam - General Exam Comments Initial Comments: Physical Exam GENERAL: Patient is well-developed and well-nourished. Patient is nontoxic and well-hydrated and is in no distress. HENT: Normocephalic, Atraumatic. EYES: PERRL, EOMI PULMONARY: Unlabored respirations. CARDIOVASCULAR: RRR Warm and well perfused extremities ABDOMEN: Non-distended SKIN: No rashes or bruising : Deferred NEUROLOGIC: Alert and oriented Normal speech Normal gait MUSCULOSKELETAL: Moving all extremities with no apparent injury PSYCHIATRIC: No SI/HI Limitations: no limitations Course Vital Signs 07/22/23 07/23/23 07/23/23 20:00 01:36 02:08 Temperature 98.3 F Pulse Rate 111 H 71 78 Respiratory 22 17 17 Rate Blood Pressure 170/118 151/104 138/102 O2 Sat by Pulse 98 98 95 Oximetry 07/23/23 07/23/23 07/23/23 02:57 04:41 06:55 Temperature 97.9 F Pulse Rate 70 72 71 Respiratory 16 17 16 Rate Blood Pressure 136/94 144/93 153/99 O2 Sat by Pulse 100 100 99 Oximetry Medical Decision Making - Medical Decision Making Was pt. sent in by a medical professional or institution ([facility], RADIOLOGY PHYSICIAN ASSISTANT, urgent care, hospital, or alf...) When possible be specific @ -No Did you speak to anyone other than the patient for history (EMS, parent, family, police, friend...)? What history was obtained from this source @ -No Did you review nursing and triage notes (agree or disagree)? Why? @ -I reviewed and agree with nursing and triage notes Were old charts reviewed (outside hosp., previous admission, EMS record, old EKG, old radiological studies, urgent care reports/EKG's, alf records)? Report findings @ -Previous admission and endoscopy reports were reviewed Differential Diagnosis (chest pain, altered mental status, abdominal pain women, abdominal pain men, vaginal bleeding, weakness, fever, dyspnea, syncope, headache, dizziness, GI bleed, back pain, seizure, CVA, palpatations, mental health)? @ -Differential Abdominal Pain Men: Appendicitis, cholecystitis, diverticulosis, ischemic bowel, pancreatitis, hepatitis, UTI, gastroenteritis, AAA, incarcerated hernia, bowel obstruction, constipation, inflammatory bowel, hepatitis, peptic ulcer disease, splenic infarction, perforated viscus, testicular torsion, this is not meant to be an all-inclusive list EKG interpreted by me (3pts min.). @ -As above X-rays interpreted by me (1pt min.). @ -None done CT interpreted by me (1pt min.). @ -No free air, no fluid in the abdomen, no signs of bowel obstruction lots of fluid in the small bowel concerning for ileus or enteritis U/S interpreted by me (1pt. min.). @ -None done What testing was considered but not performed or refused? (CT, X-rays, U/S, labs)? Why? @ -None What meds were considered but not given or refused? Why? @ -None Did you discuss the management of the patient with other professionals (professionals i.e. , PA, RADIOLOGY PHYSICIAN ASSISTANT, lab, RT, psych nurse, social secretary, aerodynamics teacher, teacher, personnel training officer, casework specialist)? Give summary @ -No Was smoking cessation discussed for >3mins.? @ -No Was critical care preformed (if so, how long)? @ -No Were there social determinants of health that impacted care today? How? (Homelessness, low income, unemployed, alcoholism, drug addiction, transportation, low edu. Level, literacy, decrease access to med. care, [place] [facility], rehab)? @ -No Was there de-escalation of care discussed even if they declined (Discuss DNR or withdrawal of care, Hospice)? DNR status @ -No What co-morbidities impacted this encounter? (DM, HTN, Smoking, COPD, CAD, Cancer, CVA, ARF, Chemo, Hep., AIDS, mental health diagnosis, sleep apnea, morbid obesity)? @ -None Was patient admitted / discharged? Hospital course, mention meds given and route , prescriptions, significant lab abnormalities, going to OR and other pertinent info. @ -Admit Patient was seen and evaluated, history is obtained from the patient. Patient has a 30 pound weight loss over the past 4 weeks. He has persistent diarrhea. There is occasional blood in his stool but not grossly bloody stool. Chronic crampy abdominal pain. I discussed with the patient the possibility of C. difficile versus small bowel overgrowth syndrome versus new lead diagnosed inflammatory bowel disease. Patient's labs resulted with mild transaminitis which was new. An acute hepatitis panel was performed but did not result here in the ER. We will plan to admit the patient for fluid resuscitation, repeat labs and management of his now chronic abdominal pain and diarrhea. Undiagnosed new problem with uncertain prognosis? @ -No Drug Therapy requiring intensive monitoring for toxicity (Heparin, Nitro, Insulin, Cardizem)? @ -No Were any procedures done? @ -No Diagnosis/symptom? @ -Colitis, transaminitis Acute, or Chronic, or Acute on Chronic? @ -Acute on chronic Uncomplicated (without systemic symptoms) or Complicated (systemic symptoms)? @ -Default Side effects of treatment? @ -No Exacerbation, Progression, or Severe Exacerbation? @ -No Poses a threat to life or bodily function? How? (Chest pain, [place], ND, pneumonia, PE, COPD, DKA, ARF, appy, cholecystitis, CVA, Diverticulitis, Homicidal, Suicidal, threat to staff... and all critical care pts) @ -No - Lab Data Result diagrams: 07/22/23 22:31 07/22/23 22:31 Lab Results 07/22/23 07/22/23 07/22/23 Range/Units 22:31 22:31 22:31 WBC 6.8 (3.8-10.6) k/uL RBC 4.15 L (4.30-5.90) m/uL Hgb 13.5 (13.0-17.5) gm/dL Hct 39.5 (39.0-53.0) % MCV 95.1 (80.0-100.0) fL MCH 32.4 (25.0-35.0) pg MCHC 34.1 (31.0-37.0) g/dL RDW 12.5 (11.5-15.5) % Plt Count 202 (150-450) k/uL MPV 7.1 Neutrophils % 52 % Lymphocytes % 37 % Monocytes % 7 % Eosinophils % 1 % Basophils % 1 % Neutrophils # 3.5 (1.3-7.7) k/uL Lymphocytes # 2.5 (1.0-4.8) k/uL Monocytes # 0.4 (0-1.0) k/uL Eosinophils # 0.0 (0-0.7) k/uL Basophils # 0.0 (0-0.2) k/uL PT 10.3 (10.0-12.5) sec INR 0.9 (<1.2) APTT 22.6 (22.0-30.0) sec Sodium 141 (137-145) mmol/L Potassium 3.9 (3.5-5.1) mmol/L Chloride 103 (98-107) mmol/L Carbon Dioxide 26 (22-30) mmol/L Anion Gap 12 mmol/L BUN 6 L (9-20) mg/dL Creatinine 0.69 (0.66-1.25) mg/dL Est GFR (CKD-EPI)AfAm >90 (>60 ml/min/1.73 sqM) Est GFR (CKD-EPI)NonAf >90 (>60 ml/min/1.73 sqM) Glucose 72 L (74-99) mg/dL Lactic Ac Sepsis Rflx Plasma Lactic Acid Poli (0.7-2.0) mmol/L Calcium 9.1 (8.4-10.2) mg/dL Total Bilirubin 0.4 (0.2-1.3) mg/dL AST 76 H (17-59) U/L ALT 52 H (4-49) U/L Alkaline Phosphatase 66 (38-126) U/L Total Protein 7.0 (6.3-8.2) g/dL Albumin 4.5 (3.5-5.0) g/dL Lipase 109 (23-300) U/L Urine Color Urine Appearance (Clear) Urine pH (5.0-8.0) Ur Specific [place] (1.001-1.035) Urine Protein (Negative) Urine Glucose (UA) (Negative) Urine Ketones (Negative) Urine Blood (Negative) Urine Nitrite (Negative) Urine Bilirubin (Negative) Urine Urobilinogen (<2.0) mg/dL Ur Leukocyte Esterase (Negative) C. difficile (EIA) Intrp (Negative) 07/22/23 07/22/23 07/23/23 Range/Units 22:31 22:55 00:00 WBC (3.8-10.6) k/uL RBC (4.30-5.90) m/uL Hgb (13.0-17.5) gm/dL Hct (39.0-53.0) % MCV (80.0-100.0) fL MCH (25.0-35.0) pg MCHC (31.0-37.0) g/dL RDW (11.5-15.5) % Plt Count (150-450) k/uL MPV Neutrophils % % Lymphocytes % % Monocytes % % Eosinophils % % Basophils % % Neutrophils # (1.3-7.7) k/uL Lymphocytes # (1.0-4.8) k/uL Monocytes # (0-1.0) k/uL Eosinophils # (0-0.7) k/uL Basophils # (0-0.2) k/uL PT (10.0-12.5) sec INR (<1.2) APTT (22.0-30.0) sec Sodium (137-145) mmol/L Potassium (3.5-5.1) mmol/L Chloride (98-107) mmol/L Carbon Dioxide (22-30) mmol/L Anion Gap mmol/L BUN (9-20) mg/dL Creatinine (0.66-1.25) mg/dL Est GFR (CKD-EPI)AfAm (>60 ml/min/1.73 sqM) Est GFR (CKD-EPI)NonAf (>60 ml/min/1.73 sqM) Glucose (74-99) mg/dL Lactic Ac Sepsis Rflx Y Plasma Lactic Acid Poli 3.4 H* (0.7-2.0) mmol/L Calcium (8.4-10.2) mg/dL Total Bilirubin (0.2-1.3) mg/dL AST (17-59) U/L ALT (4-49) U/L Alkaline Phosphatase (38-126) U/L Total Protein (6.3-8.2) g/dL Albumin (3.5-5.0) g/dL Lipase (23-300) U/L Urine Color Urine Appearance (Clear) Urine pH (5.0-8.0) Ur Specific [place] (1.001-1.035) Urine Protein (Negative) Urine Glucose (UA) (Negative) Urine Ketones (Negative) Urine Blood (Negative) Urine Nitrite (Negative) Urine Bilirubin (Negative) Urine Urobilinogen (<2.0) mg/dL Ur Leukocyte Esterase (Negative) C. difficile (EIA) Intrp Negative (Negative) 07/23/23 07/23/23 Range/Units 00:10 01:25 WBC (3.8-10.6) k/uL RBC (4.30-5.90) m/uL Hgb (13.0-17.5) gm/dL Hct (39.0-53.0) % MCV (80.0-100.0) fL MCH (25.0-35.0) pg MCHC (31.0-37.0) g/dL RDW (11.5-15.5) % Plt Count (150-450) k/uL MPV Neutrophils % % Lymphocytes % % Monocytes % % Eosinophils % % Basophils % % Neutrophils # (1.3-7.7) k/uL Lymphocytes # (1.0-4.8) k/uL Monocytes # (0-1.0) k/uL Eosinophils # (0-0.7) k/uL Basophils # (0-0.2) k/uL PT (10.0-12.5) sec INR (<1.2) APTT (22.0-30.0) sec Sodium (137-145) mmol/L Potassium (3.5-5.1) mmol/L Chloride (98-107) mmol/L Carbon Dioxide (22-30) mmol/L Anion Gap mmol/L BUN (9-20) mg/dL Creatinine (0.66-1.25) mg/dL Est GFR (CKD-EPI)AfAm (>60 ml/min/1.73 sqM) Est GFR (CKD-EPI)NonAf (>60 ml/min/1.73 sqM) Glucose (74-99) mg/dL Lactic Ac Sepsis Rflx Plasma Lactic Acid Poli 3.1 H* (0.7-2.0) mmol/L Calcium (8.4-10.2) mg/dL Total Bilirubin (0.2-1.3) mg/dL AST (17-59) U/L ALT (4-49) U/L Alkaline Phosphatase (38-126) U/L Total Protein (6.3-8.2) g/dL Albumin (3.5-5.0) g/dL Lipase (23-300) U/L Urine Color Colorless Urine Appearance Clear (Clear) Urine pH 6.0 (5.0-8.0) Ur Specific [place] 1.009 (1.001-1.035) Urine Protein Negative (Negative) Urine Glucose (UA) Negative (Negative) Urine Ketones Negative (Negative) Urine Blood Negative (Negative) Urine Nitrite Negative (Negative) Urine Bilirubin Negative (Negative) Urine Urobilinogen <2.0 (<2.0) mg/dL Ur Leukocyte Esterase Negative (Negative) C. difficile (EIA) Intrp (Negative) Disposition Clinical Impression: Abdominal pain, Colitis, Transaminitis Disposition: ADMITTED IP TO THIS HOSP
--- NOTE | 2023-07-22 23:06 | XR ---
EXAM: XR Abdomen, 1 View CLINICAL HISTORY: XR Reason: abdominal pain TECHNIQUE: Frontal supine view of the abdomen/pelvis. COMPARISON: CT scan from July 01, 2023 FINDINGS: Intraperitoneal space: No pneumoperitoneum is seen under the diaphragm. Gastrointestinal tract: Gas fluid level in a nondilated stomach and several nondilated large and small bowel loops in the upper abdomen suggesting mild ileus. No abnormal gas collections are seen. Bones/joints: Unremarkable. No acute fracture. IMPRESSION: Gas fluid level in a nondilated stomach and several nondilated large and small bowel loops in the upper abdomen suggesting mild ileus. No abnormal gas collections are seen.
--- NOTE | 2023-07-23 00:08 | CT ---
EXAM: CT Abdomen and Pelvis With Intravenous Contrast CLINICAL HISTORY: CT Reason: abd pain, weight loss TECHNIQUE: Axial computed tomography images of the abdomen and pelvis with intravenous contrast. CTDI is 14.2 mGy and DLP is 642.2 mGy-cm. This CT exam was performed using one or more of the following dose reduction techniques: automated exposure control, adjustment of the mA and/or kV according to patient size, and/or use of iterative reconstruction technique. COMPARISON: July 01, 2023 FINDINGS: Lung bases: Unremarkable. No mass. No consolidation. ABDOMEN: Liver: The liver is upper normal in size measuring 18.2 cm. No focal liver mass lesion is seen. Gallbladder and bile ducts: Unremarkable. No calcified stones. No ductal dilation. Pancreas: Unremarkable. No mass. No ductal dilation. Spleen: Unremarkable. No splenomegaly. Adrenals: Unremarkable. No mass. Kidneys and ureters: Unremarkable. No solid mass. No hydronephrosis. Stomach and bowel: See below. PELVIS: Appendix: The appendix is normal. Bowel loops are nondilated. There are several scattered gas fluid levels within the colon which is abnormal and suggest mild ileus or enteritis. No pneumoperitoneum, free fluid, or abscess is seen. Bladder: Unremarkable. No mass. Reproductive: Unremarkable as visualized. ABDOMEN and PELVIS: Intraperitoneal space: See above. Bones/joints: No acute fracture. No dislocation. Soft tissues: Unremarkable. Vasculature: Unremarkable. No abdominal aortic aneurysm. Lymph nodes: Unremarkable. No enlarged lymph nodes. IMPRESSION: The appendix is normal. Bowel loops are nondilated. There are several scattered gas fluid levels within the colon which is abnormal and suggest mild ileus or enteritis. No pneumoperitoneum, free fluid, or abscess is seen.
[2023-07-23] MEDS: SODIUM CHLORIDE 0.9% 1,000 ML IV ONE ×2 (00:09→04:51)
[2023-07-23] MEDS: SODIUM CHLORIDE 0.9% 1,000 ML IV SCH (00:09)
[2023-07-23 00:41] LABS: Appearance,Urine Clear (Clear); Bilirubin,Urine Negative (Negative); Blood,Urine Negative (Negative); Color,Urine Colorless; Glucose,Urine (UA) Negative (Negative); Ketones,Urine Negative (Negative); Leukocyte Esterase,Urine Negative (Negative); Nitrite,Urine Negative (Negative); Protein,Urine Negative (Negative); Specific Gravity,Urine 1.009 (1.001-1.035); Urobilinogen,Urine <2.0 mg/dL (<2.0)
[2023-07-23] MEDS ORDERED: NALOXONE 0.4 MG/ML 1 ML VIAL IV PRN (01:59)
[2023-07-23 05:28] LABS: Glucose,Whole Blood 132 mg/dL (70-110)
[2023-07-23 10:45] LABS: Hepatitis A Antibody IgM Nonreactive (Nonreactive); Hepatitis B Core IgM Nonreactive (Nonreactive); Hepatitis B Surface Antigen Nonreactive (Nonreactive); Hepatitis C IgG Antibody Reactive (Nonreactive)
[2023-07-23] MEDS ORDERED: ACETAMINOPHEN TAB 325 MG TAB PO PRN (13:40)
[2023-07-23] MEDS ORDERED: LORazepam 1 MG/0.5 ML VIAL IV PRN (13:41)
[2023-07-23] MEDS ORDERED: TEMAZEPAM 15 MG CAP PO PRN (13:41)
[2023-07-23] MEDS: NON FORMULARY DRUG (Buprenorphine-Nalox 8-2 Mg Tab 1 EACH Tablet) SUBLINGUAL SCH (14:33)
[2023-07-23] MEDS: KETOROLAC 15 MG/ML 1 ML VIAL IVP SCH (14:35)
[2023-07-23] MEDS: NICOTINE 14MG/24HR PATCH TRANSDERM SCH (14:37)
[2023-07-23] MEDS: LORazepam 0.5 MG TAB PO PRN (14:43)
--- NOTE | 2023-07-23 15:25 | XR ---
EXAM: XR chest 1V portable CLINICAL INDICATION:Male, 42 years old with history of chf; [facility] COMPARISON: 07/01/2023 TECHNIQUE: Chest single view. FINDINGS: Lines/tubes/devices: None. Cardiomediastinum: Cardiac silhouette appears normal in size. Unremarkable mediastinal silhouette. Vasculature: No increased pulmonary vasculature. Lungs/pleura: No consolidation, sizeable effusion, or visible pneumothorax. Bones/soft tissues: Bony thorax appears grossly intact as seen. Regional soft tissues appear unremarkable. IMPRESSION: No acute cardiopulmonary abnormality.
[2023-07-23] MEDS: HEPARIN SODIUM,PORCINE 5,000 UNIT/ML 1 ML VIAL SQ SCH (21:16)
--- NOTE | 2023-07-24 01:48 | HP ---
HISTORY AND PHYSICAL CHIEF COMPLAINT: Abdominal pain, persistent diarrhea and vomiting. HISTORY OF PRESENT ILLNESS: This 42-year-old gentleman with a past history of hypertension, chronic back pain, history of head injury, history of substance abuse apparently, was recently admitted to [facility] with GI bleed. The evaluation showed moderate duodenitis and colitis with no active bleeding. The patient was discharged symptomatically better. The surgical biopsy was reported as mild duodenitis, reactive gastropathy, moderate active colitis with maintained crypt architecture. The patient has had currently being admitted for further evaluation and treatment. 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 There is no history of any fever, rigors, or chills. 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 The patient is apparently incarcerated and during that time, the patient had complete treatment according to him. PAST MEDICAL HISTORY: Hypertension, chronic back pain. The patient takes Suboxone for substance abuse ideation. HOME MEDICATIONS: Suboxone. Rest of medications in the chart is also reviewed. ALLERGIES: Bactrim. FAMILY HISTORY: History of CAD, hyperlipidemia. SOCIAL HISTORY: History of smoking, occasional alcohol THC. REVIEW OF SYSTEMS: Fourteen-point review of systems negative except as mentioned earlier. PHYSICAL EXAMINATION: VITAL SIGNS: Pulse is 56, blood pressure 160/91, respirations 16. HEENT: Conjunctivae normal. NECK: No jugular venous distention. CARDIOVASCULAR: S1, S2. RESPIRATIONS: Breath sounds diminished at the bases. A few scattered rhonchi and crackles. ABDOMEN: Soft, mild diffuse discomfort on palpation. No guarding. No rigidity. No mass palpable. LEGS: No edema, no cyanosis. NERVOUS SYSTEM: Nonfocal. SKIN: No rashes. JOINTS: No active deforming arthropathy. LABORATORY DATA: Reviewed. ASSESSMENT: 1. Acute on chronic diarrhea, abdominal pain with possible enteritis. Rule out parasitic infection, and treat fever. 2. Elevated AST and ALT. 3. History of recent duodenitis and colitis. 4. History of substance abuse. 5. Hypertension. 6. History of chronic back pain. 7. History of nicotine dependence. 8. History of THC. 9. Remote history of hepatitis C. RECOMMENDATIONS AND DISCUSSION: This 42-year-old gentleman with multiple complex medical issues. I would recommend to continue the current medications. I would recommend full testing and keep the patient on clear liquids and Cryptosporidium and giardia testing, blood cultures, enteric salmonella typhi titers and guarded prognosis because of multiple complex medical issues. Further recommendations to follow. We will obtain Infectious Disease evaluation as well as the patient also required full gastroenterology workup when available. See orders for details. MMODL / IJN: [id number] /
[2023-07-24] MEDS: PANTOPRAZOLE 40 MG TABLET PO SCH (06:49)
[2023-07-24] MEDS: lisinopriL 20 MG TAB PO SCH (07:47)
--- NOTE | 2023-07-24 09:19 | P.GSCN ---
History of Present Illness Consult date: 07/24/23 Reason for Consult: Abdominal pain, diarrhea History of present illness: 42-year-old male returns to the hospital with persistent complaints of abdominal pain diarrhea and vomiting. Patient was hospitalized just recently and underwent EGD and colonoscopy by Dr. Omalley. Patient was found to have duodenitis, small gastric ulcer, active colitis. Patient was also hospitalized at [facility] at 1 point recently. Describes a 30 pound weight loss over the last month or so. Was bit in the left arm and the leg by a pit bull dog about 1 month ago. Thinks this is when his symptoms started. Feels persistent flulike symptoms. Diarrhea approximately 10 times per day. Often bloody. Many of those have been uncontrolled with incontinence. Patient describes being hungry but frequent vomiting. He is asking for food currently. He was also in [place] 3 to 4 months ago. Review of Systems The patient denies any acute changes in vision or hearing, no dysphagia or odynophagia, no chest pain or shortness of breath, no dysuria or hematuria, no headache, no runny nose Past Medical History Past Medical History: Hypertension Additional Past Medical History / Comment(s): Chronic back pain, head injury 2003 History of Any Multi-Drug Resistant Organisms: None Reported Additional Past Surgical History / Comment(s): brain surgery jaw surgery Past Anesthesia/Blood Transfusion Reactions: No Reported Reaction Past Psychological History: Anxiety Smoking Status: Current every day smoker Past Alcohol Use History: Occasional Past Drug Use History: Marijuana - Past Family History Father Family Medical History: Coronary Artery Disease (CAD), Hyperlipidemia Medications and Allergies Home Medications Medication Instructions Recorded Confirmed Type Acetaminophen Tab [Tylenol] 650 mg PO Q6HR PRN tab 07/06/23 07/23/23 Rx Pantoprazole [Protonix] 40 mg PO DAILY #30 tab 07/06/23 07/23/23 Rx lisinopriL 40 mg PO DAILY 30 Days #30 tab 07/06/23 07/23/23 Rx Buprenorphine-Nalox 8-2 mg Tab 1 tab SL DIRECTED 07/23/23 07/23/23 History [Suboxone 8-2 mg Tab] Allergies Allergy/AdvReac Type Severity Reaction Status Date / Time sulfamethoxazole AdvReac Unknown Verified 07/23/23 11:30 [From Bactrim] trimethoprim [From Bactrim] AdvReac Unknown Verified 07/23/23 11:30 Surgical - Exam Vital Signs Temp Pulse Resp BP Pulse Ox 98.3 F 111 H 22 170/118 98 07/22/23 20:00 07/22/23 20:00 07/22/23 20:00 07/22/23 20:00 07/22/23 20:00 Physical exam: General: Well-developed, well-nourished HEENT: Normocephalic, sclerae nonicteric Abdomen: Minimal tenderness, nondistended Extremities: No edema Neuro: Alert and oriented Results - Labs 07/22/23 22:31 07/22/23 22:31 Abnormal Lab Results - Last 24 Hours (Table) 07/22/23 07/23/23 Range/Units 22:51 14:12 ESR 17 H (0-15) mm/Hr Hep C IgG Ab Reactive A (Nonreactive) Assessment and Plan (1) Abdominal pain Narrative/Plan: 42-year-old male with abdominal pain, diarrhea, rectal bleeding. CAT scan reviewed. No active inflammatory changes noted. Recommend GI and infectious disease evaluation. No surgical intervention planned. Resume regular diet. Current Visit: Yes Status: Acute Code(s): R10.9 - UNSPECIFIED ABDOMINAL PAIN SNOMED Code(s): 76061089
[2023-07-24 09:31] LABS: Basophils # (A) 0.04 X 10*3/uL (0.00-0.10); Basophils % (A) 0.9 %; Eosinophils # (A) 0.13 X 10*3/uL (0.04-0.35); HCT 34.7 % (39.6-50.0); HGB 12.1 g/dL (13.0-17.0); Lymphocytes # (A) 1.94 X 10*3/uL (0.90-5.00); Lymphocytes % (A) 44.6 %; MCH 32.1 pg (27.0-32.0); MCHC 34.9 g/dL (32.0-37.0); Mean Platelet Volume 8.9 FL (9.5-12.2); Monocytes # (A) 0.48 X 10*3/uL (0.20-1.00); NRBC Per 100 WBC 0 X 10*3/uL (0.00-0.01); Neutrophils # (A) 1.75 X 10*3/uL (1.80-7.70); Neutrophils % (A) 40.3 %; Platelet Count 146 X 10*3/uL (140-440); RBC 3.77 X 10*6/uL (4.40-5.60); RDW 11.9 % (11.5-14.5); WBC 4.35 X 10*3/uL (4.50-10.00)
[2023-07-24 10:04] VITALS: BMI 24.2
[2023-07-24] MEDS: BUPRENORPHINE-NALOX 8-2 MG TAB 1 EACH TAB.SUBL SL SCH (10:36)
[2023-07-24 10:37] LABS: ALT 33 U/L (10-49); AST 36 U/L (14-35); Albumin 3.9 g/dL (3.8-4.9); Albumin/Globulin Ratio 2.29 Ratio (1.60-3.17); Alkaline Phosphatase 54 U/L (41-126); BUN/Creat Ratio 7.33 Ratio (12.00-20.00); Blood Urea Nitrogen 4.4 mg/dL (9.0-27.0); Calcium 8.8 mg/dL (8.7-10.3); Chloride 103 mmol/L (96-109); Globulin 1.7 g/dL (1.6-3.3); Glucose 109 mg/dL (70-110); Magnesium 1.8 mg/dL (1.5-2.4); Potassium 3.7 mmol/L (3.5-5.5); Sodium 139 mmol/L (135-145); Total Bilirubin 0.4 mg/dL (0.3-1.2); Total Protein 5.6 g/dL (6.2-8.2)
[2023-07-24 23:06] LABS: Cryptosporidium Antigen Negative (Negative)
--- NOTE | 2023-07-25 01:58 | PN ---
PROGRESS NOTE DATE OF SERVICE: 07/24/2023 SUBJECTIVE: This 42-year-old gentleman who was admitted with abdominal discomfort and enteritis, had continued diarrhea. The patient wants to eat. At this time, no chest pain. No palpitation. No fever. No cough. Stool testing is pending. PHYSICAL EXAMINATION: VITAL SIGNS: Pulse is 61, blood pressure 147/87, and respirations 16. CHEST: Clear to auscultation. CARDIOVASCULAR: S1, S2. ABDOMEN: Soft and nontender. NERVOUS SYSTEM: Nonfocal. LABORATORY DATA: Sedimentation rate is 77. Rest of the labs are noted. ASSESSMENT: 1. Acute on chronic diarrhea, abdominal pain with possible enteritis. Rule out parasitic infection and enteric fever or typhoid fever. 2. Increased AST and ALT. 3. History of recent duodenitis and colitis. 4. History of substance abuse. 5. Hypertension. 6. History of chronic back pain. 7. History of nicotine dependence. 8. History of THC. 9. Remote history of hepatitis C. RECOMMENDATIONS AND DISCUSSION: I recommend to continue current management and continue symptomatic treatment. Otherwise, at this time we will follow with Infectious Disease. Guarded prognosis. Further recommendations to follow. MMODL / IJN: [id number] /
--- NOTE | 2023-07-25 10:48 | P.PN ---
Subjective Progress Note Date: 07/25/23 Principal diagnosis: Abdominal pain Patient says he feels better today. White blood cell count 4.3. ESR 17. Lactoferrin positive. Stool cultures are negative. Objective - Vital Signs Vital signs: Vital Signs Temp 97.6 F 07/25/23 07:25 Pulse 54 L 07/25/23 07:25 Resp 16 07/25/23 07:25 BP 169/87 07/25/23 07:25 Pulse Ox 99 07/25/23 07:25 FiO2 Intake & Output 07/24/23 07/25/23 07/25/23 18:59 06:59 18:59 Intake Total 356 236 Output Total 2 Balance 356 -2 236 Weight 68.039 kg Intake: Oral 356 236 Output: Stool 2 Other: Voiding Method Toilet Toilet # Voids 2 - Exam Abdomen: Soft, nontender, nondistended - Labs CBC & Chem 7: 07/24/23 05:13 07/24/23 05:13 Labs: Abnormal Lab Results - Last 24 Hours (Table) 07/23/23 Range/Units 11:33 Stool Lactoferrin Positive A (Negative) Microbiology - Last 24 Hours (Table) 07/23/23 00:00 Stool Culture - Preliminary Stool Assessment and Plan (1) Abdominal pain Narrative/Plan: Clinically patient is improved. Stool still to be checked for ova and parasites. Await formal infectious disease evaluation. Will follow. Current Visit: Yes Status: Acute Code(s): R10.9 - UNSPECIFIED ABDOMINAL PAIN SNOMED Code(s): 72926334
[2023-07-25] MEDS: LEVOFLOXACIN 500MG-D5W PMX 500 MG in DEXTROSE/WATER 1 100ML.BAG IVPB SCH (14:00)
[2023-07-25] MEDS: metroNIDAZOLE 500 MG TAB PO SCH ×2 (14:11→21:45)
--- NOTE | 2023-07-25 20:19 | PN ---
PROGRESS NOTE DATE OF SERVICE: 07/25/2023 SUBJECTIVE: This is a 42-year-old gentleman with acute on chronic diarrhea. He is being closely monitored. No chest pain. No palpitation. The stool test coming back as stool OB is positive. OBJECTIVE: VITAL SIGNS: Pulse 54, blood pressure 116/87, and respirations 16. CHEST: Few scattered rhonchi. ABDOMEN: Soft. NERVOUS SYSTEMS: Nonfocal. LABORATORY DATA: Reviewed. ASSESSMENT: 1. Acute on chronic diarrhea and abdominal pain with possible enteritis, rule out parasitic infection or enteric fever or typhoid fever. 2. Increased AST and ALT. 3. History of recent duodenitis and colitis. 4. History of substance abuse. 5. Hypertension. 6. Chronic back pain. 7. History of nicotine dependence. 8. History of THC. 9. History of hepatitis C. RECOMMENDATIONS: Recommend to continue current medical management and symptomatic treatment. Otherwise, I would recommend empiric antibiotics and continue to monitor. Guarded prognosis. Further recommendations to follow. MMODL / IJN: [id number] /
--- NOTE | 2023-07-25 22:25 | P.CONS ---
History of Present Illness - Reason for Consult Consult date: 07/25/23 - History of Present Illness Patient is a 42-year-old male with a past medical history significant for hypertension anxiety, recent admission to this facility with the patient presented with the abdominal pain GI bleed patient did have upper and lower GI by Dr. Archer and there was evidence of jejunitis and colitis s/p biopsy which was suggestive of colitis with a question of infectious etiology the patient has been treated with a course of oral Flagyl patient mention he did have improvement in his symptoms however once the antibiotics were done he still having diarrhea and also does have blood in the stool patient complaining of some crampy lower abdominal pain intensity moderate without radiation re commending of some dry heaves but no vomiting some chills but denies high-grade fever with the symptoms the patient presented back to the hospital on 07/22/2023 patient did have an abdominal pelvis CT which shows evidence of mild ileus or enteritis no pneumoperitoneum patient did not have any fever during this admission did have a normal white count lactic acid was mildly elevated creatinine was normal liver isms mildly elevated urine was negative stool lactoferrin was positive Cryptosporidium Giardia antigen negative C. difficile negative hepatitis C IgG positive stool cultures currently pending patient has been treated with the Flagyl infectious he was consulted for further management of antibiotic therapy Past Medical History Past Medical History: Hypertension Additional Past Medical History / Comment(s): Chronic back pain, head injury 2003 History of Any Multi-Drug Resistant Organisms: None Reported Additional Past Surgical History / Comment(s): brain surgery jaw surgery Past Anesthesia/Blood Transfusion Reactions: No Reported Reaction Past Psychological History: Anxiety Smoking Status: Current every day smoker Past Alcohol Use History: Occasional Past Drug Use History: Marijuana - Past Family History Father Family Medical History: Coronary Artery Disease (CAD), Hyperlipidemia Medications and Allergies Home Medications Medication Instructions Recorded Confirmed Type Acetaminophen Tab [Tylenol] 650 mg PO Q6HR PRN tab 07/06/23 07/23/23 Rx Pantoprazole [Protonix] 40 mg PO DAILY #30 tab 07/06/23 07/23/23 Rx lisinopriL 40 mg PO DAILY 30 Days #30 tab 07/06/23 07/23/23 Rx Buprenorphine-Nalox 8-2 mg Tab 1 tab SL DIRECTED 07/23/23 07/23/23 History [Suboxone 8-2 mg Tab] Allergies Allergy/AdvReac Type Severity Reaction Status Date / Time levofloxacin [From Levaquin] AdvReac Mild Rash/Hives Verified 07/25/23 15:21 sulfamethoxazole AdvReac Unknown Verified 07/23/23 11:30 [From Bactrim] trimethoprim [From Bactrim] AdvReac Unknown Verified 07/23/23 11:30 Physical Exam Vitals: Vital Signs Temp Pulse Pulse Resp BP BP Pulse Ox 07/25/23 13:40 98.0 F 73 16 159/96 97 07/25/23 07:25 97.6 F 54 L 16 169/87 99 07/25/23 02:04 74 16 07/25/23 01:39 98.2 F 61 15 157/88 95 07/24/23 20:22 74 16 07/24/23 19:26 97.6 F 74 16 154/84 96 Intake and Output 07/25/23 07/25/23 07/25/23 06:59 14:59 22:59 Intake Total 236 Output Total 1 Balance -1 236 Intake: Oral 236 Output: Stool 1 Other: Voiding Method Toilet # Voids 2 3 Results CBC & Chem 7: 07/24/23 05:13 07/24/23 05:13 Labs: Abnormal Lab Results - Last 24 Hours (Table) 07/23/23 Range/Units 11:33 Stool Lactoferrin Positive A (Negative) Microbiology - Last 24 Hours (Table) 07/23/23 12:35 Blood Culture - Preliminary Blood 07/23/23 00:00 Stool Culture - Preliminary Stool Assessment and Plan Plan: 1patient presented to hospital with diarrhea hematochezia in this patient who did have a recent colonoscopy evidence of colitis question of infectious or noninfectious etiology patient to have a history of chronic hepatitis C questionable related to the chronic hepatitis C versus infectious etiology 2-stool cultures currently pending 3-patient to continue with the Flagyl and Rocephin 4-will benefit from GI evaluation to see if there is any correlation between his chronic hepatitis C and the abnormal finding on the colon/colitis We will follow on clinical condition and cultures to further adjust medication if needed Thank you for this consultation we will follow the patient along with you Dictation was produced using [employer] dictation software. please excuse any grammatical, word or spelling errors. Time with Patient: Greater than 30
[2023-07-26 10:41] LABS: Basophils # (A) 0.04 X 10*3/uL (0.00-0.10); Basophils % (A) 0.7 %; Eosinophils # (A) 0.11 X 10*3/uL (0.04-0.35); Eosinophils % (A) 1.9 %; HCT 37.4 % (39.6-50.0); HGB 12.9 g/dL (13.0-17.0); Lymphocytes % (A) 22.8 %; MCH 31.9 pg (27.0-32.0); MCHC 34.5 g/dL (32.0-37.0); MCV 92.3 FL (80.0-97.0); Mean Platelet Volume 8.9 FL (9.5-12.2); Monocytes # (A) 0.54 X 10*3/uL (0.20-1.00); Monocytes % (A) 9.5 %; NRBC Per 100 WBC 0 X 10*3/uL (0.00-0.01); Neutrophils # (A) 3.67 X 10*3/uL (1.80-7.70); Neutrophils % (A) 64.4 %; Platelet Count 174 X 10*3/uL (140-440); RBC 4.05 X 10*6/uL (4.40-5.60); RDW 11.9 % (11.5-14.5)
[2023-07-26 12:08] LABS: ALT 22 U/L (10-49); AST 20 U/L (14-35); Albumin 3.9 g/dL (3.8-4.9); Albumin/Globulin Ratio 2.29 Ratio (1.60-3.17); Alkaline Phosphatase 53 U/L (41-126); BUN/Creat Ratio 23.43 Ratio (12.00-20.00); Blood Urea Nitrogen 16.4 mg/dL (9.0-27.0); Calcium 8.7 mg/dL (8.7-10.3); Carbon Dioxide 26.9 mmol/L (21.6-31.8); Chloride 101 mmol/L (96-109); Globulin 1.7 g/dL (1.6-3.3); Glucose 96 mg/dL (70-110); Sodium 138 mmol/L (135-145); Total Bilirubin <0.2 mg/dL (0.3-1.2); Total Protein 5.6 g/dL (6.2-8.2)
[2023-07-26 14:02] LABS: HIV 2 AB Non-Reactive (Non-Reactive); HIV AB P24 Non-Reactive (Non-Reactive); HIV P24 AG Non-Reactive (Non-Reactive)
--- NOTE | 2023-07-26 15:21 | P.PN ---
Subjective Progress Note Date: 07/26/23 CHIEF COMPLAINT: Abdominal pain HISTORY OF PRESENT ILLNESS: Patient presented with abdominal pain and bloody diarrhea. Patient reports he had 5 stools yesterday and 2 stools this morning. He complains of pain in the right lower quadrant of the abdomen. He reports that the stools are no longer bloody. He denies any nausea or vomiting. Last colonoscopy on 07/04/2023 had revealed colitis. Patient is tolerating diet. Afebrile. WBC 5.70 Hgb 12.9 preliminary stool cultures are negative. Stool for C. difficile negative. Stool C. difficile PCR uncollected so far. Stool for ova and parasite still to be collected. Patient is seen by infectious disease. Their input is appreciated. PHYSICAL EXAM: VITAL SIGNS: Reviewed. GENERAL: Well-developed in no acute distress. ABDOMEN: Soft. Nondistended. Mild tenderness right lower quadrant NEUROLOGIC: Alert and oriented. Cranial nerves II through XII grossly intact. ASSESSMENT: 1. Abdominal pain with bloody diarrhea 2. Recent colonoscopy with colitis 3. Chronic hepatitis C PLAN: -Continue antibiotics -Continue supportive care -Agree with patient being evaluated by GI service Physician Software Recruiter note has been reviewed by physician. Signing provider agrees with the documented findings, assessment, and plan of care. I have personally seen and examined the patient, reviewed the PADDER /PAs history, exam and MDM and agree with the assessment and plan as written. Based on total visit time, I have performed more than 50% of the visit. As above: Patient says his pain is improved. Studies thus far negative. No surgical intervention planned. Will sign off. Please reconsult if needed. Objective - Vital Signs Vital signs: Vital Signs Temp 97.8 F 07/26/23 07:00 Pulse 52 L 07/26/23 07:00 Resp 16 07/26/23 14:00 BP 171/93 07/26/23 07:00 Pulse Ox 97 07/26/23 07:00 FiO2 Intake & Output 07/25/23 07/26/23 07/26/23 18:59 06:59 18:59 Intake Total 476 480 Output Total 2 Balance 476 -2 480 Intake: Oral 476 480 Output: Stool 2 Other: Voiding Method Toilet Toilet # Voids 3 4 - Labs CBC & Chem 7: 07/26/23 06:37 07/26/23 06:37 Labs: Abnormal Lab Results - Last 24 Hours (Table) 07/26/23 07/26/23 Range/Units 06:37 06:37 RBC 4.05 L (4.40-5.60) X 10*6/uL Hgb 12.9 L (13.0-17.0) g/dL Hct 37.4 L (39.6-50.0) % MPV 8.9 L (9.5-12.2) FL BUN/Creatinine Ratio 23.43 H (12.00-20.00) Ratio Total Bilirubin <0.2 L (0.3-1.2) mg/dL Total Protein 5.6 L (6.2-8.2) g/dL Microbiology - Last 24 Hours (Table) 07/23/23 12:35 Blood Culture - Preliminary Blood 07/23/23 11:33 Stool Culture - Preliminary Stool 07/23/23 00:00 Stool Culture - Final Stool
--- NOTE | 2023-07-26 16:55 | P.PN ---
Subjective Progress Note Date: 07/26/23 Principal diagnosis: Reason for follow-up is colitis Patient is a 42-year-old male with a past medical history significant for hypertension anxiety, chronic hepatitis C for the patient has completed 8- week course of Mavyret recent admission to the hospital with bleeding per rectum has been diagnosed with colitis improved on Flagyl presenting back to the hospital worsening symptoms after completion of antibiotics. On today's evaluation that is 07/26/2023, patient has been afebrile, patient is breathing comfortably and is currently on room air, patient denies having any significant cough no chest pain shortness of breath, patient denies nausea vomiting abdominal pain has improved did have resolution of his diarrhea and no bleeding per rectum. Patient white count is 5.70, creatinine 0.7 HIV testing came back negative Objective - Vital Signs Vital signs: Vital Signs Temp 97.8 F 07/26/23 07:00 Pulse 52 L 07/26/23 07:00 Resp 16 07/26/23 07:57 BP 171/93 07/26/23 07:00 Pulse Ox 97 07/26/23 07:00 FiO2 Intake & Output 07/25/23 07/26/23 07/26/23 18:59 06:59 18:59 Intake Total 476 280 Output Total 2 Balance 476 -2 280 Intake: Oral 476 280 Output: Stool 2 Other: Voiding Method Toilet Toilet # Voids 3 4 - Exam GENERAL DESCRIPTION: Middle-age male lying in bed in no distress RESPIRATORY SYSTEM: Unlabored breathing , decreased breath sounds at bases HEART: S1 S2 regular rate and rhythm , ABDOMEN: Soft , no tenderness EXTREMITIES: No edema feet - Labs CBC & Chem 7: 07/26/23 06:37 07/26/23 06:37 Labs: Abnormal Lab Results - Last 24 Hours (Table) 07/26/23 Range/Units 06:37 RBC 4.05 L (4.40-5.60) X 10*6/uL Hgb 12.9 L (13.0-17.0) g/dL Hct 37.4 L (39.6-50.0) % MPV 8.9 L (9.5-12.2) FL Microbiology - Last 24 Hours (Table) 07/23/23 11:33 Stool Culture - Preliminary Stool 07/23/23 00:00 Stool Culture - Final Stool 07/23/23 12:35 Blood Culture - Preliminary Blood Assessment and Plan (1) Diarrhea Current Visit: Yes Status: Acute Code(s): R19.7 - DIARRHEA, UNSPECIFIED SNOMED Code(s): 25605741 (2) Colitis Current Visit: Yes Status: Acute Code(s): K52.9 - NONINFECTIVE GASTROENTERITIS AND COLITIS, UNSPECIFIED SNOMED Code(s): 05984745 Plan: 1patient presented to hospital with diarrhea hematochezia in this patient who did have a recent colonoscopy evidence of colitis question of infectious or noninfectious etiology patient to have a history of chronic hepatitis C questionable related to the chronic hepatitis C versus infectious etiology 2-stool cultures currently pending 3-patient to continue with the Flagyl along with Rocephin, we will check his hepatitis C RNA Dictation was produced using [employer] dictation software. please excuse any grammatical, word or spelling errors. Time with Patient: Less than 30
--- NOTE | 2023-07-26 21:47 | PN ---
PROGRESS NOTE DATE OF SERVICE: 07/26/2023 SUBJECTIVE: This is a 42-year-old gentleman who was admitted with acute on chronic diarrhea, possible infectious. He is being closely monitored. No chest pain, no palpitation. OBJECTIVE: VITAL SIGNS: Pulse is 52, blood pressure 170/90, respirations 16. CHEST: Clear to auscultation. CARDIOVASCULAR: S1, S2. ABDOMEN: Soft, nontender. LABORATORY DATA: Reviewed. ASSESSMENT: 1. Acute on chronic diarrhea with abdominal pain with possible enteritis, infectious, rule out parasitic disease or enteric fever or typhoid fever. 2. Increased AST, ALT. 3. History of recent duodenitis and colitis. 4. History of substance abuse. 5. Hypertension. 6. Chronic back pain. 7. History of nicotine dependence. 8. History of THC. RECOMMENDATIONS: Recommended to continue current management, continue symptomatic treatment. Otherwise at this time, I recommended to continue empiric antibiotics and the patient will require endoscopes as an outpatient. Further recommendations to follow. MMODL / IJN: [id number] /
[2023-07-27 02:33] VITALS: TEMP 97.5
[2023-07-27 08:05] VITALS: BP 182/95; PULSE 99; RESP 18
[2023-07-27 10:30] LABS: Basophils # (A) 0.05 X 10*3/uL (0.00-0.10); Basophils % (A) 1.1 %; Eosinophils # (A) 0.15 X 10*3/uL (0.04-0.35); Eosinophils % (A) 3.2 %; HCT 39.5 % (39.6-50.0); HGB 13.6 g/dL (13.0-17.0); Lymphocytes # (A) 1.89 X 10*3/uL (0.90-5.00); Lymphocytes % (A) 39.7 %; MCH 31.4 pg (27.0-32.0); MCHC 34.4 g/dL (32.0-37.0); MCV 91.2 FL (80.0-97.0); Mean Platelet Volume 8.9 FL (9.5-12.2); Monocytes # (A) 0.53 X 10*3/uL (0.20-1.00); Monocytes % (A) 11.1 %; NRBC Per 100 WBC 0 X 10*3/uL (0.00-0.01); Neutrophils % (A) 44.1 %; Platelet Count 157 X 10*3/uL (140-440); RBC 4.33 X 10*6/uL (4.40-5.60); WBC 4.76 X 10*3/uL (4.50-10.00)
[2023-07-27 10:41] LABS: BUN/Creat Ratio 24.43 Ratio (12.00-20.00); Blood Urea Nitrogen 17.1 mg/dL (9.0-27.0); Calcium 8.8 mg/dL (8.7-10.3); Chloride 102 mmol/L (96-109); Glucose 99 mg/dL (70-110); Potassium 4.3 mmol/L (3.5-5.5); Sodium 140 mmol/L (135-145)
--- NOTE | 2023-07-28 16:47 | P.PN ---
Subjective Progress Note Date: 07/27/23 Principal diagnosis: Reason for follow-up is colitis Patient is a 42-year-old male with a past medical history significant for hypertension anxiety, chronic hepatitis C for the patient has completed 8- week course of Mavyret recent admission to the hospital with bleeding per rectum has been diagnosed with colitis improved on Flagyl presenting back to the hospital worsening symptoms after completion of antibiotics. On today's evaluation that is 07/27/2023,the patient denies any fever or any chills, patient is breathing comfortably on room air, the patient denies chest pain shortness of breath and no significant cough, patient denies abdominal pain, no nausea vomiting and did have resolution of his diarrhea denies any blood in the stool. Patient white count 4.76, creatinine 0.7 stool cultures negative Objective - Vital Signs Vital signs: Vital Signs Temp 97.5 F L 07/27/23 07:00 Pulse 99 07/27/23 07:00 Resp 18 07/27/23 07:00 BP 182/95 07/27/23 07:00 Pulse Ox 99 07/27/23 07:00 FiO2 Intake & Output 07/26/23 07/27/23 07/27/23 18:59 06:59 18:59 Intake Total 720 118 Balance 720 118 Intake: Oral 720 118 Other: Voiding Method Toilet Toilet # Voids 2 - Exam GENERAL DESCRIPTION: Middle-age male lying in bed in no distress RESPIRATORY SYSTEM: Unlabored breathing , decreased breath sounds at bases HEART: S1 S2 regular rate and rhythm , ABDOMEN: Soft , no tenderness EXTREMITIES: No edema feet - Labs CBC & Chem 7: 07/27/23 06:32 07/27/23 06:32 Labs: Abnormal Lab Results - Last 24 Hours (Table) 07/27/23 07/27/23 Range/Units 06:32 06:32 RBC 4.33 L (4.40-5.60) X 10*6/uL Hct 39.5 L (39.6-50.0) % MPV 8.9 L (9.5-12.2) FL BUN/Creatinine Ratio 24.43 H (12.00-20.00) Ratio Microbiology - Last 24 Hours (Table) 07/23/23 12:35 Blood Culture - Preliminary Blood 07/23/23 11:33 Stool Culture - Final Stool Assessment and Plan (1) Diarrhea Status: Acute Code(s): R19.7 - DIARRHEA, UNSPECIFIED SNOMED Code(s): 35934993 (2) Colitis Status: Acute Code(s): K52.9 - NONINFECTIVE GASTROENTERITIS AND COLITIS, UNSPECIFIED SNOMED Code(s): 97650547 Plan: 1patient presented to hospital with diarrhea hematochezia in this patient who did have a recent colonoscopy evidence of colitis question of infectious or noninfectious etiology patient to have a history of chronic hepatitis C questionable related to the chronic hepatitis C versus infectious etiology 2-stool culturesso far negative 3-patient did have clinical improvement with the Flagyl along with Rocephin, plan is to finish therapy with oral Ceftin and Flagyl, the patient hepatitis C RNA is currently pending Dictation was produced using [employer] dictation software. please excuse any grammatical, word or spelling errors. Time with Patient: Less than 30
--- NOTE | 2023-07-30 07:31 | P.DS ---
Providers Date of admission: 07/23/23 10:56 Expected date of discharge: 07/27/23 Attending physician: Janes Mulligan Consults: 07/24/23 09:14 Consult Physician Routine Consulting Provider: Jose Rousseau Consult Reason/Comments: Colitis after dog bite Do you want consulting provider notified?: Yes Primary care physician: Stated None Hospital Course: Final diagnosis Acute on chronic diarrhea with abdominal pain, likely enteritis, ruled out parasitic disease , enteric fever ,typhoid fever Increased liver functions, trending down History of recent duodenitis and colitis History of substance abuse Hypertension Chronic back pain, takes Suboxone outpatient History of nicotine dependence THC use GI prophylaxis DVT prophylaxis Full code Discharge disposition Patient is being discharged in a stable condition with guarded prognosis to home. Patient will follow-up with Suzanna Samson in the outpatient setting upon discharge. Patient is to continue with antibiotics and outpatient follow-up with GI along with general surgery as scheduled. Total time taken is greater than 35 minutes. Hospital course This is a 42-year-old male who was recently admitted with abdominal pain with acute diarrhea with nausea and vomiting and inability to tolerate oral intake. Patient maintained on antibiotics with concerns of enteritis colitis. Patient also with significant history of substance abuse and chronic back pain reportedly gets Suboxone from an online source as he is currently up here from [place] staying with his grandma who has cancer. Patient to establish with a primary care provider as well as follow-up with GI outpatient. Patient will continue short course of antibiotics on discharge and recommend outpatient follow-up. Please refer to other consultation notes for further HPI. Currently no reports of chest pain, shortness of breath, or palpitations. Patient is afebrile. No reports of nausea or vomiting and patient is tolerating diet. Patient having somewhat loose stools but improved from previous. Strongly encouraged outpatient follow-up with GI. Patient will be discharged home today. High risk for readmissions given patient's significant noncompliance, no PCP. Physical exam: Gen: This is a 42-year-old male who is awake, alert and oriented x 3, thin built, well-developed HEENT: Head is atraumatic, normocephalic. Pupils equal, round. Sclerae is anicteric. NECK: Supple. No JVD. No lymphadenopathy. No thyromegaly. LUNGS: Clear to auscultation. No wheezes or rhonchi. No intercostal retractions. HEART: Regular rate and rhythm. No murmur. ABDOMEN: Soft. Bowel sounds are present. No masses. tenderness noted on palpation although improved from previous. EXTREMITIES: No pedal edema. No calf tenderness. NEUROLOGICAL: Patient is awake, alert and oriented x3. Cranial nerves 2 through 12 are grossly intact. Please refer to medication reconciliation sheet for a list of medications. The impression and plan of care has been dictated by Jolie Kim, Nurse Practitioner as directed. Dr. Isaak MD I have performed a history and examination and MDM of this patient, discussed the same with the dictator, and agree with the dictator's assessment and plan as written ,documented as a scribe. Based on total visit time, I have performed more than 50% of the visit. Patient Condition at Discharge: Fair Plan - Discharge Summary Discharge Rx Participant: Yes New Discharge Prescriptions: New metroNIDAZOLE [Flagyl] 500 mg PO Q8H 7 Days #21 tab LORazepam [Ativan] 1 mg PO BID 3 Days #6 tab cefUROXime axetiL [Ceftin] 500 mg PO BID 7 Days #14 tab Nicotine 14Mg/24Hr Patch [Habitrol] 1 patch TRANSDERM DAILY patch Continue Buprenorphine-Nalox 8-2 mg Tab [Suboxone 8-2 mg Tab] 1 tab SL DIRECTED Pantoprazole [Protonix] 40 mg PO DAILY #30 tab Acetaminophen Tab [Tylenol] 650 mg PO Q6HR PRN tab PRN Reason: Fever And/ Or Pain lisinopriL 40 mg PO DAILY 30 Days #30 tab Discharge Medication List Acetaminophen Tab [Tylenol] 650 mg PO Q6HR PRN tab 07/06/23 [Rx] Pantoprazole [Protonix] 40 mg PO DAILY #30 tab 07/06/23 [Rx] lisinopriL 40 mg PO DAILY 30 Days #30 tab 07/06/23 [Rx] Buprenorphine-Nalox 8-2 mg Tab [Suboxone 8-2 mg Tab] 1 tab SL DIRECTED [History] LORazepam [Ativan] 1 mg PO BID 3 Days #6 tab 07/27/23 [Rx] Nicotine 14Mg/24Hr Patch [Habitrol] 1 patch TRANSDERM DAILY patch 07/27/23 [Rx] cefUROXime axetiL [Ceftin] 500 mg PO BID 7 Days #14 tab 07/27/23 [Rx] metroNIDAZOLE [Flagyl] 500 mg PO Q8H 7 Days #21 tab 07/27/23 [Rx] Follow up Appointment(s)/Referral(s): Althea Delaney MD [STAFF PHYSICIAN] - 1 Week Suzanna Samson PAC [REFERRING] - 1 Week None,Stated [Primary Care Provider] - 1-2 days Patient Instructions/Handouts: Peptic Ulcer (DC), Gastritis (DC), Diet for Stomach Ulcers and Gastritis (ED) Activity/Diet/Wound Care/Special Instructions: PT HAS HOME MEDS IN HIS BIN IN MED ROOM, PLEASE GIVE TO HIM AT DISCHARGE Activity limited until follow-up Follow-up with primary care provider to reestablish Follow-up with GI outpatient Continue current diet and slowly advance as tolerated Continue with antibiotics until finished Discharge/Stand Alone Forms: Who Do I Call?, Community Resources, Area PCPs Discharge Disposition: HOME SELF-CARE
== END 2023-07-27 14:45 | disposition home or self-care (01) | DRG 249 ==
LOC: EC 19:59 → 6NMEDSUR 07-23 02:00 → OBSVTOIN 07-23 10:56
PROVIDERS: ADMIT Hospitalist; ATTEND Hospitalist
DX: K52.9 Noninfective gastroenteritis and colitis, unspecified (principal); I10 Essential (primary) hypertension; M54.9 Dorsalgia, unspecified; F41.9 Anxiety disorder, unspecified; F17.200 Nicotine dependence, unspecified, uncomplicated; G89.29 Other chronic pain; K29.80 Duodenitis without bleeding; B18.2 Chronic viral hepatitis C; K25.9 Gastric ulcer, unspecified as acute or chronic, without hemorrhage or perforation; K31.9 Disease of stomach and duodenum, unspecified; Z79.899 Other long term (current) drug therapy
CPT/HCPCS: 36415; 71045; 74018; 74177; 80048; 80053; 80074; 81003; 83605; 83630; 83690; 83735; 85025; 85610; 85652; 85730; 86140; 87040; 87045; 87046; 87324; 87328; 87329; 87390; 87522; 96360; 96361; 99285